=== PATIENT | female | born 1995 | race Caucasian/White ===

== ENCOUNTER 2023-02-11 11:10 | Emergency (ER) | payer MEDICAID, SELFPAY ==
[2023-02-11 11:11] VITALS: BP 122/80; PULSE 111; RESP 18; TEMP 36.2; O2SAT 98; BMI 20.7
--- NOTE | 2023-02-11 11:18 | EX.ED.GENINJ ---
HPI History of Present Illness Chief Complaint: Laceration [facility] Medical History Anxiety Depression Allergy/AdvReac Type Severity Reaction Status Date / Time No Known Allergies Allergy Verified 02/11/23 11:11 Social History Smoking Status: Current every day smoker tobacco type: cigarettes EXAM Physical Exam Const Vital Signs: 02/11/23 11:11 Temperature 97.1 F L Temperature Source Temporal Pulse Rate 111 H Respiratory Rate 18 Blood Pressure 122/80 H Blood Pressure Mean 94 Pulse Ox 98 Oxygen Delivery Method Room Air [facility] Narrative Medical decision making narrative: HISTORY OF PRESENT ILLNESS: 27-year-old female here with left thumb laceration. 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 Last tetanus 2 years ago REVIEW OF SYSTEMS: Pertinent positives: Laceration to left thumb Pertinent negatives: Numbness, tingling, loss sensation, loss of movement PHYSICAL EXAM: Nursing triage notes reviewed, Vital signs reviewed Constitutional: please see mdm Extremities: No edema, intact flexor digitorum profundus and superficialis tendons, intact extensor tendons. Neuro: Intact 5/5 strength with ok sign (median), intact finger abduction (ulnar) intact wrist extension (radial n). Intact sensation in the radial, ulnar, and median nerve distributions. Skin: Proximal 1 cm linear laceration noted to the dorsal surface of the left thumb, no underlying structures involved no foreign bodies noted MEDICAL DECISION MAKING: Chief Complaint: Thumb laceration External records reviewed: No recent advanced imaging of the involved extremity Factors affecting care: none Social determinants of health: none History obtained from others: none Consults: none [facility] Narrative: Patient was initially tachycardic otherwise hemodynamically stable, afebrile, nontoxic-appearing The patient suffered lacerations to the left dorsal thumb. On exam there was no evidence of foreign bodies. There was no evidence of neurovascular injury. Patient had a normal distal vascular exam, and had intact ROM and sensation. There was also no evidence of tendon injury, with normal distal full range of motion, flexion, extension, abduction, abduction. There is no evidence of local joint space involvement at this time. Wound care applied (irrigation and/or local cleansing solution). Laceration repair was then performed please see procedure note. The patient was given signs and symptoms warnings for infection, such as increasing pain, redness, swelling, associated heat, pus or fever. Patient was given instructions for timely follow-up for removal. Patient agreed with the plan of care Procedure: Laceration repair. The procedure was performed by myself. Indication: Wound repair Risks and benefits: risks, benefits and alternatives were discussed Consent: Consent was obtained. Wound Details: A proximately 1 cm linear superficial laceration noted to the left dorsal thumb. Anesthesia: Digital block performed with 1% lidocaine without epinephrine Wound prep: Patient was prepped and draped in the usual sterile fashion. Tetanus: Updated 2 years ago Irrigation Solution: Saline Wound Preparation: Cleaned with chlorhexidine The wound was explored to its base in a bloodless field. Procedure Description: 3 simple erupted, 5-0 Chromic Gut sutures were applied with good approximation Patient tolerated the procedure well with no immediate complications The patient and/or family, caregivers express understanding. The patient and/or family, caregivers agrees with the plan. Workmen's Compensation paperwork completed. Shared decision making: I will have a discussion with the patient and or visitors regarding risk/benefits of further testing or admission. They will be made aware of of the risk/benefits inherent in this decision they will be given the opportunity to voice understanding. Total critical care time today provided was at least 0 minutes. This excludes separately billable procedures. Critical care time (if documented) is secondary to the patient having high probability of clinically significant/life threatening deterioration in the patient's condition which required my urgent intervention. Impression: 1. Thumb laceration Dispo: disCharge Discharge Plan Triage Chief Complaint: Laceration ED Provider: Bijan Syed Dx/Rx/DC Orders Primary Care Provider: Care Physician,No Primary Referrals: Care Physician,No Primary [Primary Care Provider] -
[2023-02-11] MEDS: Lidocaine 1% (20 ml mdv) 20 ML Vial 5 ML INFILT (11:42)
--- NOTE | 2023-02-11 12:32 | ED.RN ---
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 REGISTRATION AND PATIENT'S KNOWLEDGE MANAGEMENT CONSULTANT MADE AWARE,DRUG SCREEN NOT REQUIRED ACCORDING TO KNOWLEDGE MANAGEMENT CONSULTANT. FRIO NOT COMPLETED.
== END 2023-02-11 12:33 | disposition home or self-care (01) ==
PROVIDERS: Emergency Provider Emergency Medicine; Visit Provider Emergency Medicine
DX: S61.012A Laceration without foreign body of left thumb without damage to nail, initial encounter (principal); F17.210 Nicotine dependence, cigarettes, uncomplicated; W26.8XXA Contact with other sharp object(s), not elsewhere classified, initial encounter; Y92.69 Other specified industrial and construction area as the place of occurrence of the external cause
CPT/HCPCS: 12001; 99282

== ENCOUNTER 2023-03-30 07:48 | Emergency (ER) | payer MEDICAID, SELFPAY ==
[2023-03-30 07:49] VITALS: BP 101/77; PULSE 78; RESP 14; TEMP 36.7; O2SAT 98; BMI 21.6
--- NOTE | 2023-03-30 08:07 | EDS_ITS ---
HPI History of Present Illness Chief Complaint: Wound Detail of Chief Complaint: Unable to remove piercing from right maxillary region Informant: patient Onset/Context/Timing Onset: Today Context: Sudden Onset Timing: Continuous Quality: Soft tissue swelling Location: Right maxillary region Current Severity: Moderate Maximum Severity: Moderate Worsened by: Attempt to remove janet stud Associated Symptoms Associated Symptoms: Pain, soft tissue swelling without erythema, warmth or induration. There i Narrative Narrative: Is a 27-year-old female who had her right and left cheek pierced 1 month ago. She attempted to remove the janet stud without success. She had significant swelling on the right side. She denies fever, chills night sweats. She denies redness, warmth or drainage. She attempted to remove and was unsuccessful. No history medic fever, heart murmur or mitral valve prolapse. Prior similar symptoms: No Recent Illness/Hospitalization: No PFSH PFS Medical History Anxiety Depression Home Medications cephalexin 500 mg capsule 500 mg PO Q6 #20 CAPSULES 03/30/23 [Rx Last Taken Unknown] Allergy/AdvReac Type Severity Reaction Status Date / Time No Known Allergies Allergy Verified 03/30/23 07:49 Social History (Updated 03/30/23 @ 08:[address] Ankit Esquivel MD) household members: none Smoking Status: Current every day smoker tobacco type: cigarettes alcohol intake: current ROS ROS ED Constitutional Constitutional ED: Denies chills, fever(s) or subjective Eyes Eyes: Denies blurry vision, change in vision or diplopia ENT ENT ED: Reports other Details: Facial swelling, maxillary region ; Denies ear pain, rhinorrhea or sore throat Cardiovascular Cardiovascular: Reports chest pain Respiratory/Chest Respiratory/Chest: Reports cough and dyspnea Gastrointestinal Gastrointestinal: Reports nausea and vomiting Integumentary Denies abscess, Abrasions or rash Neurologic Neurologic: Denies paresthesias Allergic/Immunologic Allergic/Immunologic ED: Denies mouth swelling, tongue swelling or urticaria EXAM Physical Exam Const Vital Signs: 03/30/23 07:49 Temperature 98.1 F Temperature Source Temporal Pulse Rate 78 Respiratory Rate 14 Blood Pressure 101/77 Blood Pressure Mean 85 Pulse Ox 98 Oxygen Delivery Method Room Air Positive well nourished and well developed General Appearance ED: well developed and NAD; Negative for cyanotic, diaphoretic or pallor HEENT Reports moist mucous membranes HEENT Narrative: Janet stud on the right is embedded into the skin and buccal surface. Unable to see the post where the clasp is. There is no erythema, warmth, induration or drainage. There is no preauricular lymphadenopathy. Eyes PERRL and EOMs intact bilaterally General Eye ED: Negative for pale conjunctiva or scleral icterus Neck no lymphadenopathy, supple and no JVD Resp normal respiratory effort and clear to auscultation bilaterally Cardio regular rate, regular rhythm, S1 normal heart sound, S2 normal heart sound and no murmurs Neuro oriented x3 and CN's II-XII intact bilaterally Sensorium / Orientation: alert Psych mental status grossly normal Skin no rashes or lesions noted and skin turgor normal General Skin Exam: elasticity normal; Negative for jaundice or pallor MDM MDM MDM Narrative Medical decision making narrative: A janet stud is embedded. Patient was informed that treatment will be to anesthetize the area. Make a small incision on the buccal surface to expose the post and class. Temporally be made to remove the clasp. Patient asked if a larger bore could be placed to prevent the area from closing since she would like to have the area stay open. Initially agreed. It will depend on if there is evidence of infection. This is concern for infection. Patient was placed on cephalexin. She received her first dose in the emergency department. Procedures Other Procedures Procedure(s): The area of the piercing was anesthetized by local infiltration. The end of the post on the buccal surface was seen. The post was grabbed using Suzie hemostats. The janet portion was secured with needle lewis. An attempt to unscrew the post the buccal portion of the post broke. The piercing was easily removed. There may have been slight drainage that was cloudy.. A larger post was placed to keep the area open and alleviating need for an incision. Patient was placed on cephalexin. Discharge Plan Triage Chief Complaint: Wound ED Provider: Ankit Esquivel Dx/Rx/DC Orders Clinical Impression: Old FB in soft tissue, Pierced face infection Prescriptions: New cephalexin [cephalexin] 500 mg capsule 500 mg PO Q6 Qty: 20 0RF Primary Care Provider: Care Physician,No Primary Referrals: Care Physician,No Primary [Primary Care Provider] - Doctor,Your [Non-Staff] - 2 Days for wound check Activity Restrictions/Additional Instructions: 1. Warm compresses to right cheek region 4-6 times a day 2. Take antibiotics until gone 3. See your primary care doctor for wound check in 2 days. The name of your doctor is on your insurance card issued to you by [facility]. Disposition Disposition: Home, Self Care
[2023-03-30] MEDS: Lidocaine 1% (20 ml mdv) 20 ML Vial INFILT (08:11)
[2023-03-30] MEDS: Cephalexin 250 MG Capsule 500 MG PO (08:48)
== END 2023-03-30 08:58 | disposition home or self-care (01) ==
PROVIDERS: Emergency Provider Emergency Medicine; Visit Provider Emergency Medicine
DX: M79.5 Residual foreign body in soft tissue (principal); F17.210 Nicotine dependence, cigarettes, uncomplicated; L08.89 Other specified local infections of the skin and subcutaneous tissue; Z18.89 Other specified retained foreign body fragments
CPT/HCPCS: 10120; 99282

== ENCOUNTER 2024-11-20 07:11 | Emergency (ER) | payer MEDICAID, SELFPAY ==
[2024-11-20 07:11] VITALS: BP 112/66; PULSE 75; RESP 14; TEMP 36.6; O2SAT 98
--- NOTE | 2024-11-20 07:40 | RAD_ITS ---
PROCEDURE: ANKLE MIN 3 VIEWS 11/20/2024 REASON FOR EXAM: INJURY Recent fall. TECHNIQUE: ANKLE MIN 3 VIEWS COMPARISON: None FINDINGS: Bones: No fracture. Joints: Normal alignment. Mortise appears intact. No effusion. Soft tissues: Soft tissues are unremarkable. Other: RAD/Ankle min 3 Views IMPRESSION: No acute abnormality is seen. Reading Location: [place] [id number]
--- NOTE | 2024-11-20 07:40 | RAD_ITS ---
PROCEDURE: FOOT MIN 3 VIEWS 11/20/2024 REASON FOR EXAM: INJURY Fall. TECHNIQUE: FOOT MIN 3 VIEWS COMPARISON: None FINDINGS: Bones: No visible fracture. No suspicious bone lesion. Joints: Normal alignment. Soft tissues: Soft tissues are unremarkable. Other: RAD/Foot min 3 Views IMPRESSION: NO ACUTE FRACTURE OR DISLOCATION. Reading Location: [place] [id number]
--- NOTE | 2024-11-20 07:40 | EDS_ITS ---
HPI History of Present Illness Chief Complaint: Lower Extremity Injury Informant: patient Narrative Narrative: Healthy 29-year-old female states she was dancing on a pole last night and fell off of it, injuring her left foot/ankle. She is not sure exactly the mechanism of injury, when I asked by showing by example on the uninjured leg what an ankle inversion feels like, she thinks that is what happened. She states she has been unable to put any weight on it since the injury. No numbness or other injury. [facility] Medical History Depression Anxiety Home Medications ?Medication ?Instructions ?Recorded ?Last Taken ?Type cephalexin 500 mg capsule 500 mg PO Q6 #20 CAPSULES Unknown Rx naproxen 500 mg tablet 500 mg PO BID PRN #14 tabs 0 11/20/24 Unknown Rx Allergy/AdvReac Type Severity Reaction Status Date / Time No Known Allergies Allergy Verified 03/30/23 07:49 Social History (Updated 03/30/23 @ 08:[address] Ankit Esquivel MD) household members: none Smoking Status: Current every day smoker tobacco type: cigarettes alcohol intake: current ROS ROS ED Constitutional Constitutional ED: Denies chills or fever(s) Musculoskeletal Musculoskeletal: Reports extremity pain; Denies neck pain Integumentary Denies Abrasions, rash or wounds Neurologic Neurologic: Denies paresthesias or weakness EXAM Physical Exam Const Vital Signs: 11/20/24 07:11 Temperature 98 F Temperature Source Temporal Pulse Rate 75 Respiratory Rate 14 Blood Pressure 112/66 Blood Pressure Mean 81 Pulse Ox 98 Oxygen Delivery Method Room Air Positive well nourished and well developed General Appearance ED: well developed and NAD Neck full ROM and supple Back/Spine normal ROM and normal to inspection Extremity normal to inspection Extremity Narrative: Left lower extremity: No deformities. Minor swelling and some tenderness in the dorsal proximal lateral midfoot, just distal to the lateral malleolus, which is nontender but there is tenderness in the distal fibula several centimeters proximal to the lateral malleolus. Nontender at the fibular head. Nontender medial malleolus. The base of the fifth metatarsal is tender without significant swelling and the rest of the foot is nontender. Limited range of motion at the ankle due to pain. Full range of motion at the knee and hip without difficulty. Other 3 extremities move fully without limitation or tenderness. Neuro oriented x3, no focal motor deficits and no sensory deficits noted Sensorium / Orientation: alert Psych mental status grossly normal and thought process normal Skin no wounds Rashes: no rashes MDM MDM MDM Narrative Medical decision making narrative: Three-view x-ray series of the left ankle and 3 views series of the left foot both negative for acute fracture or dislocation on my interpretation. Radiology in agreement. Patient will be treated as an ankle sprain, she was given an Aircast stirrup and some crutches as well as NSAID prescription as well as a dose here and follow-up advised. Radiography Diagnostic Testing: Clinical Impression(s) from Imaging Studies Ankle X-Ray 11/20/24 07:40 IMPRESSION: No acute abnormality is seen. Reading Location: [facility]-1 Foot X-Ray 11/20/24 07:40 IMPRESSION: NO ACUTE FRACTURE OR DISLOCATION. Reading Location: [facility]-- Discharge Plan Triage Chief Complaint: Lower Extremity Injury ED Provider: Rod May Dx/Rx/DC Orders Clinical Impression: Left ankle sprain Instructions: ED Ankle Sprain (Adult) Prescriptions: New naproxen 500 mg tablet 500 mg PO BID PRN Qty: 14 0RF No Action cephalexin [cephalexin] 500 mg capsule 500 mg PO Q6 Qty: 20 0RF Primary Care Provider: Care Physician,No Primary Referrals: Ruben Kulkarni MD [Med Staff - Active Staff] - 10-14 Days if not better Print Language: Khmer Disposition Disposition: Home, Self Care
--- OUTSIDE RECORDS SUMMARY | 2024-11-20 08:18 | XMS RPT_ITS | CCD ---
Author Organization [facility] InformFormerly [facility] Care Team Providers Care Validation Technician Name Role Phone CELIA YEPEZ Unavailable Unavailable BOTELLOMARKEL Unavailable Unavailable Unavailable Primary Care Provider Unavailabl e Unavailable Primary Care Provider Unavailabl e Unavailable Primary Care Provider Unavailabl e Casa DATA REDUCTION TECHNICIAN.Carlin VENCES Primary Care Provider Care Physician, No Primary Primary Care Unava ilable Bijan Syed Attending Unavailable Care Physician, No Primary Primary Care Unava ilable Ankit Esquivel Attending Unavailable Casa DATA REDUCTION TECHNICIAN.Carlin VENCES Primary Care Provider CARLIN BURR Primary Care Unavailable SYBIL ORTA Attending Unavailable SELF Referring Unavailable Medications Current Medications Medication Drug Class(es) Dates Sig (Normalized) Sig (Original) cephalexin 500 mg oral capsule (2 sources) Cephalosporin Antibacterial Start: 03-30-2023 take 500 mg by mouth every six hours Cephalexin Active 500 MG PO EVERY 6 HOURS March 30, 2023 12:00am Start: 08-25-2020 End: 09-01-2020 take 1 capsule by mouth twice daily cephALEXin (KEFLEX) 500 MG capsule Take 1 capsule by mouth 2 times daily for 7 days 14 capsule 0 08/25/2020 09/01/2020 Active doxylamine succinate 25 mg oral tablet (9 sources) Start: 10-28-2020 take 1 tablet by mouth once daily doxyLAMINE succinate (GNP SLEEP AID) 25 MG tablet Take 1 tablet by mouth nightly 30 tablet 3 10/28/2020 Active Start: 08-20-2020 take 0.5 tablet by m outh once daily doxyLAMINE succinate (GNP SLEEP AID) 25 MG tablet Indications: at early stage Take 0.5 tablets by mouth nightly 15 tablet 1 08/20/2020 Active fluticasone propionate 0.05 mg/actuat metered dose nasal spray (3 sources) Corticosteroid Start: 11-01-2020 take 1 spray(s) nasal route once daily fluticasone (FLONASE) 50 MCG/ACT nasal spray 1 spray by Each Nostril route daily 1 Bottle 0 11/01/2020 Active loratadine 10 mg oral tablet (3 sources) Start: 11-01-2020 End: 12-01-2020 take 1 tablet by mouth once daily loratadine (CLARITIN) 10 MG tablet Take 1 tablet by mouth daily 30 tablet 0 11/01/2020 12/01/2020 Active MV-Min-Fe Fum-FA-DHA ( 1 PO) (3 sources) MV-Min- Fe Fum-FA-DHA ( 1 PO) Take by mouth 0 Active Vit-Fe Fumarate-FA ( VITAMIN) 27-1 MG TABS tablet (6 sources) Start: 08-20-2020 take 1 tablet by mouth once daily Vit-Fe Fumarate-FA ( VITAMIN) 27-1 MG TABS tablet Indications: at early stage Take 1 tablet by mouth daily 30 tablet 11 08/20/2020 Active Start: 08-20-2020 End: 09-19-2020 take 1 tablet by mouth once daily Vit-Fe Fumarate-FA ( VITAMIN) 27-1 MG TABS tablet Indications: at early stage Take 1 tablet by mouth daily 30 tablet 11 08/20/2020 09/19/2020 Active pyridoxine hydrochloride 25 mg oral tablet (6 sources) Start: 10-10-2020 take 1 tablet by mouth three times daily vitamin B-6 (PYRIDOXINE) 25 MG tablet Indications: at early stage TAKE 1 TABLET BY MOUTH THREE TIMES A DAY 90 tablet 1 10/10/2020 Active Start: 08-20-2020 take 1 tablet by claudio three times daily vitamin B-6 (PYRIDOXINE) 25 MG tablet Indications: at early stage Take 1 tablet by mouth 3 times daily 90 tablet 1 08/20/2020 Active sertraline 100 mg oral tablet (20 sources) Serotonin Reuptake Inhibitor Start: 09-10-2023 End: 08-10-2024 take 1 tablet by mouth once sertraline (ZOLOFT) 100 mg tablet Indications: TOBI (generalized anxiety disorder) , Dysthymic disorder Take 1 tablet by mouth every afternoon. 90 tablet 3 08/10/2024 Active Start: 03-10-2023 End: 09-10-2023 take 1 tablet by mouth once daily, then take 2 tablets by mouth once daily sertraline (ZOLOFT) 50 mg tablet Indications: Moderate episode of recurrent major depressive disorder (HCC) , TOBI (generalized anxiety disorder) Start with 50 mg by mouth once a day for 7 days, then increase to 100 mg by mouth once a day 60 tablet 5 03/10/2023 09/10/2023 Discontinued Comment on above: Start with 50 mg by mouth once a day for 7 days, then increase to 100 mg by mouth once a day triamcinolone acetonide 1 mg/ml topical cream (15 sources) Corticosteroid Start: 03-10-2023 End: 08-10-2024 triamcinolone acetonide (KENALOG) 0.1 % cream Indications: Eczema, unspecified type Apply to affected area two times a day. 45 g 3 08/10/2024 Active Comment on above: Apply to affected ar ea two times a day. Completed/Discontinued Medications Medication Drug Class(es) Dates Sig (Normalized) Sig (Original) bacitracin zinc 0.5 unt/mg topical ointment (1 source) Start: 06-21-2020 End: 06-21-2020 bacitracin ointment Start: 06-21-2020 End: 06-21-2020 bacitracin ointment hydrOXYzine hydrochloride 25 mg oral tablet (12 sources) Antihistamine Start: 03-10-2023 End: 08-10-2024 take 1 tablet by mouth three times daily as needed for anxiety hydrOXYzine HCl (ATARAX) 25 mg tablet Indications: TOBI (generalized anxiety disorder) Take 1 tablet by mouth three times a day as needed for anxiety. 30 tablet 2 03/10/2023 08/10/2024 Discontinued (Other) Comment on above: Take 1 tablet by claudio three times a day as needed for anxiety. 10 ml lidocaine hydrochloride 10 mg/ml injection (1 source) Antiarrhythmic, Amide Local Anesthetic Start: 06-21-2020 End: 06-21-2020 lidocaine 1 % injection 5 mL methylPREDNISolone (1 source) Corticosteroid Start: 01-29-2017 methylPREDNISolone (MEDROL DOSE-PACK) 4 mg Dose-Pack Indications: Pharyngitis, unspecified etiology As Instructed per package 1 Package 0 01/29/2017 Active Comment on above: As Instructed per pa ckage Problems Active Problems Problem Classification Problem Date Documented Date Episodic/Chronic Anxiety disorders (13 sources) Generalized anxiety disorder; Translations: [Generalized anxiety disorder] Onset: 08-10-2024 09-09-2023 Chronic Cancer of cervix (2 sources) Cervical atypism; Translations: [Atypical squamous cells of undetermined significance on cytologic smear of cervix (ASC-US)] 11-07-2024 Episodic Immunizations and screening for infectious disease (2 sources) Patient encounter status; Translations: [Encounter for screening for infections with a predominantly sexual mode of transmission] Onset: 08-10-2024 08-10-2024 Episodic Mood disorders (14 sources) Recurrent major depressive episodes, moderate ; Translations: [Major depressive disorder, recurrent, moderate] Onset: 08-10-2024 09-09-2023 Chronic Nonmalignant breast conditions (3 sources) Lump in upper outer quadrant of right breast; Translations: [Unspecified lump in the right breast, upper outer quadrant] 08-10-2024 Episodic Open wounds of extremities (1 source) Laceration without foreign body of left thumb without damage to nail, initial encounter; Translations: [Laceration without foreign body of left thumb without damage to nail, initial encounter] Onset: 02-17-2023 Episodic Open wounds of head; neck; and trunk (1 source) Post-traumatic wound infection; Translations: [Puncture wound without foreign body of other part of head, initial encounter] 03-30-2023 Episodic Other aftercare (1 source) Encounter for removal of sutures; Translations: [Encounter for removal of sutures] Episodic Other connective tissue disease (1 source) Residual foreign body in soft tissue; Translations: [Residual foreign body in soft tissue] 03-30-2023 Episodic Other connective tissue disease (1 source) Residual foreign body in soft tissue; Translations: [Residual foreign body in soft tissue] Onset: 03-31-2023 Episodic Other screening for suspected conditions (not mental disorders or infectious disease) (2 sources) Cancer cervix screening status; Translations: [Encounter for screening for malignant neoplasm of cervix] Onset: 08-10-2024 08-10-2024 Episodic Other upper respiratory disease (1 source) Nasal congestion; Translations: [Nasal congestion] Episodic Other upper respiratory infections (1 source) Viral upper respiratory tract infection; Translations: [Acute upper respiratory infection, unspecified] Episodic Unclassified (1 source) Laceration of left forearm; Translations: [Laceration of left forearm, initial encounter] Urinary tract infections (1 source) Acute cystitis; Translations: [Acute cystitis with hematuria] Episodic Past or Other Problems Problem Classification Problem Date Documented Date Episodic/Chronic Allergic reactions (5 sources) Eczema; Translations: [Dermatitis, unspecified] Onset: 08-10-2024 08-10-2024 Episodic Contraceptive and procreative management (4 sources) Subcutaneous contraceptive implant present; Translations: [Presence of (intrauterine) contraceptive device] Onset: 08-10-2024 08-10-2024 Episodic Other and delivery including normal (6 sources) Early stage of ; Translations: [Encounter for supervision of normal , unspecified, unspecified trimester] Onset: 08-20-2020 Resolved: 09-20-2020 08-20-2020 Episodic NEGATED: Highlighted row has been ruled out!Unclassified (4 sources) No known active problems Results Test Name Value Interpretation Reference Range Facility C. trachomatis+N. gonorrhoea e DNA RUPERTO+probe Ql (Unsp spec)on 08-10-2024 C. trachomatis rRNA RUPERTO+probe Ql (Unsp spec) Not detected Normal Not detected [facility] Comment on above: Order Comment: Speci men Type: URINE SPECIMEN Ordering Facility: [facility] Address: [address] [place] [address] Performed By: #### 3 [id number] #### [facility] CLIA [id number] [address] [place] [address] OF [facility] N. gonorrhoeae rRNA RUPERTO+probe Ql (Unsp spec) Not detected Normal Not detected [facility] Comment on above: Order Comment: Speci men Type: URINE SPECIMEN Ordering Facility: [facility] Address: [address] [place] [address] Performed By: #### 3 [id number] #### [facility] CLIA [id number] [address] [place] [address] [place] CNOVon 08-10-2024 CNOV Office Visit ([facility]) ELO BOWDEN ([id number]) 1995 F Date Time Provider Department 08/10/24 8:00 AM SYBIL ORTA During your visit today, we recorded the following information about you: Temperature Pulse Respiration Blood pressure 98 degrees 76/minute 16/minute 110/60 Weight Height Last Period 60.3 kg 1.702 m 08/03/24 Sybil Orta DO 08/10/2024 12:40 PM Signed SUBJECTIVE: 29 year old female for annual routine pap and checkup. I have fully reviewed the past medical, surgical, social and family history and updated the Histories section of [facility]. She has a history of anxiety and dysthymia She has been taking zoloft 100 mg dailly for many years, just ran out a couple of days ago. She wishes to continue this medication , as it controls her mood. She has a history of eczema Uses kenalog cream as needed Patient's last menstrual period was 07/28/2024 (approximate). 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 (Patient not taking: Reported on 08/10/2024) 45 g 3 hydrOXYzine HCl (ATARAX) 25 mg tablet Take 1 tablet by mouth three times a day as needed for anxiety. (Patient not taking: Reported on 08/10/2024) 30 tablet 2 No current facility-administered medications for this visit. There is no problem list on file for this patient. Social History Tobacco Use Smoking status: Every Day Smokeless tobacco: Never Vaping Use Vaping status: Former Substance Use Topics Alcohol use: Yes Comment: social unless medication Drug use: No Family History Problem Relation Age of Onset No Known Problems Father No Known Problems Sister No Known Problems Sister No Known Problems Sister No Known Problems Brother No Known Problems Brother No Known Problems Brother Stroke Paternal Grandmother Stroke Paternal Grandfather Anxiety disorder Paternal Aunt Reviewed past medical history, family history and surgeries. All medications and supplements were reviewed with the patient. REVIEW OF SYSTEMS GENERAL: No weight loss, malaise or fevers HEENT: Negative for frequent or significant headaches, No changes in hearing or vision, no nose bleeds or other nasal problems NECK: Negative for lumps, goiter, pain and significant neck swelling RESPIRATORY: Negative for cough, hemoptysis, wheezing, COPD, dyspnea or shortness of breath CARDIOVASCULAR: Negative for chest pain, leg swelling, hypertension, CHF or palpitations GI: No nausea, vomiting, or diarrhea : No history of dysuria, frequency or incontinence TAX APPRAISER: slightly irregular periods since starting nexplanon, negative for abnormal vaginal discharge MUSCULOSKELETAL: Negative for joint pain or swelling, back pain or muscle pain SKIN: Negative for lesions, rash, and itching PSYCH: positive for dysthymia, anxiety HEMATOLOGY/LYMPHOLOGY: Negative for prolonged bleeding, bruising easily or swollen nodes ENDOCRINE: Negative for cold or heat intolerance, polyuria, polydipsia and goiter NEURO: No history of headaches, syncope, paralysis, seizures or tremors BREAST: right breast tenderness on upper out portion PHYSICAL EXAMINATION: BP 110/60 Pulse 76 Temp 36.7 ?C (98 ?F) Resp 16 Ht 170.2 cm (5' 7) Wt 60.3 kg (133 lb) LMP 08/03/2024 (Approximate) SpO2 98% BMI 20.83 kg/m? General appearance: Well appearing, alert, in no acute distress, well-hydrated, well nourished. Skin: Skin color, texture, turgor normal, no suspicious rashes or lesions Head: Normocephalic, no masses, lesions, tenderness or abnormalities Eyes: Anicteric sclera. Pupils are equally round and reactive to light. Extraocular movements are intact. Ears: External ears normal, canals clear Nose/Sinuses: Nares normal, septum midline, mucosa normal, no drainage or sinus tenderness Oropharynx: Lips, mucosa, and tongue normal, teeth and gums normal, oropharynx normal Neck: Supple, no adenopathy; thyroid symmetric, normal size, no bruits Back: Normal exam Lungs: Lungs clear to auscultation. No wheezing, rhonchi, rales. Heart: RRR without murmur, gallop, or rubs. No ectopy Abdomen: Normal abdominal exam, Abdomen soft, non-tender. Bowel sounds normal. No masses, organomegaly : normal external female genitalia, no lesions, vaginal mucosa moist, thick white discharge around cervix, cervix nonfriable, no CMT, no adnexal tenderness Extremities: No deformities, edema, skin discoloration, clubbing or cyanosis. Good capillary refill. Musculoskeletal: N (more content not included)... Normal [facility] HIGH RISK HUMAN PAPILLOMA PAT (HPV), PCR FOR DETECTION AND GENOTYPINGon 08-10-2024 HPV 16 Ag Ql (Unsp spec) Not detected Normal Not detected [facility] Comment on above: Order Comment: Speci men Type: FLUID SPECIMEN Ordering Facility: [facility] Address: [address] [place] [address] Performed By: #### H PVHRT #### [facility] CLIA [id number] [address] [place] [address] [place] HPV 18 Ag Ql (Unsp spec) Detected Abnormal Not detected [facility] Comment on above: Order Comment: Speci men Type: FLUID SPECIMEN Ordering Facility: [facility] Address: [address] [place] [address] Performed By: #### H PVHRT #### [facility] CLIA [id number] [address] [place] [address] [place] HPV 31+33+35+39+45+51+52+56 +58+59+66+68 DNA RUPERTO+probe Ql (Cvx) Not detected Normal Not detected [facility] Comment on above: Order Comment: Speci men Type: FLUID SPECIMEN Ordering Facility: [facility] Address: [address] [place] [address] Result Comment: High Risk HPV Other Type includes HPV types 31, 33, 35, 39, 45, 51, 52, 56, 58, 59, 66 and 68. Performed By: #### H PVHRT #### [facility] CLIA [id number] [address] [place] [address] OF [place] PAP TESTon 08-10-2024 ADEQUACY Normal [facility] Comment on above: Order Comment: Speci men Type: FLUID SPECIMEN Ordering Facility: [facility] Address: [address] [place] [address] Result Comment: Sati sfactory for interpretation. Transformation zone present Performed By: #### L [id number] #### [facility] CLIA [id number] [address] [place] [address] CASE REPORT Normal [facility] Comment on above: Order Comment: Speci men Type: FLUID SPECIMEN Ordering Facility: [facility] Address: [address] [place] [address] Result Comment: Gyne cologic Cytology Report Case: [id number] Authorizing Provider: Sybil Orta DO Collected: 08/10/2024 08:59 AM Ordering Location: [facility] Received: 08/10/2024 12:08 PM First Screen: Maya Parry CT, ASCP Pathologist: Isatu Elkins MD Specimen: Pap Test, ThinPrep, Cervix Performed By: #### L [id number] #### [facility] CLIA [id number] [address] CLINICAL HISTORY, CYTOLOGY, TAX APPRAISER Routine Exam Normal [facility] Comment on above: Order Comment: Speci men Type: FLUID SPECIMEN Ordering Facility: [facility] Address: [address] [place] [address] Performed By: #### L [id number] #### [facility] CLIA [id number] [address] OF [facility] FINAL PERFORMING LAB Normal [facility] Comment on above: Order Comment: Speci men Type: FLUID SPECIMEN Ordering Facility: [facility] Address: [address] [place] [address] Result Comment: Tech nical component, computer hardware technician screening performed at [facility], [address] [place] [address] CLIA# [id number] Diagnostic interpretation performed at [facility], [address] [place] [address] CLIA# [id number] Adz Worker: Jayjay Fan M.D. Performed By: #### L [id number] #### [facility] CLIA [id number] [address] [place] [address] [place] INTERPRETATION, CYTOLOGY, TAX APPRAISER Abnormal [facility] Comment on above: Order Comment: Speci men Type: FLUID SPECIMEN Ordering Facility: [facility] Address: [address] [place] [address] Result Comment: Atyp ical squamous cells of undetermined significance (ASC-US). at 1528 EDT Performed By: #### L [id number] #### [facility] CLIA [id number] [address] [place] [address] [place] LMP 08/03/2024 Normal [facility] Comment on above: Order Comment: Speci men Type: FLUID SPECIMEN Ordering Facility: [facility] Address: [address] [place] [address] Performed By: #### L [id number] #### [facility] CLIA [id number] [address] [place] [address] [place] PAP DISCLAIMER COMMENT The Pap Smear is a screening test for cervical cancer. False negative results occur with all screening tests, emphasizing the need for rescreening at recommended intervals, and clinical correlation. Normal [facility] Comment on above: Order Comment: Speci men Type: FLUID SPECIMEN Ordering Facility: [facility] Address: [address] [place] [address] Performed By: #### L [id number] #### [facility] CLIA [id number] [address] [place] [address] STATES [facility] PAP GENERAL CATEGORIZATION Epithelial Cell Abnormality Normal [facility] Comment on above: Order Comment: Speci men Type: FLUID SPECIMEN Ordering Facility: [facility] Address: [address] [place] [address] [place] [address] Performed By: #### L [id number] #### [facility] CLIA [id number] [address] PAP FACILITIES AND GROUNDS DIRECTOR COMMENT This specimen has be en analyzed by the ThinPrep Imaging System, an automated imaging and review system, which assists the laboratory in evaluating cells on ThinPrep Pap tests. Following automated imaging, selected bethea from every slide are reviewed by a computer hardware technician. Normal [facility] Comment on above: Order Comment: Speci men Type: FLUID SPECIMEN Ordering Facility: [facility] Address: [address] [place] [id number] Performed By: #### L [id number] #### [facility] CLIA [id number] [address] CNPTiffany 08-08-2024 TRACEY Telephone (AGFAMPLE) ELO BOWDEN ([id number]) 1995 F Date Time Provider Department 08/08/24 CARLIN BURR During your visit today, we recorded the following information about you: Barbara Velasquez MA 08/08/2024 11:31 AM Signed Please help assist scheduling appointment for patient for refill on medication . Thank you. LEANN Davis Katherine 08/08/2024 12:04 PM Signed Called patient to make an appointment. The phone # listed is a [place]ian speaking man and said it was not Elo's phone number. She has noone listed on her HIPAA so I did not call the other phone number in her chart. Brynn Palmer Allergies As of Date: 08/08/2024 (No Known Allergies) Date Reviewed: 03/10/2023 Reviewed by: Carlin Burr, DATA REDUCTION TECHNICIAN.MAGNETIC RESONANCE IMAGING COORDINATOR - Fully Assessed Reason for Visit: Appointment [[id number]] Prescriptions as of 08/08/2024 - sertraline (ZOLOFT) 100 mg tablet TAKE 1 TABLET BY MOUTH EVERY DAY - triamcinolone acetonide (KENALOG) 0.1 % cream Apply to affected area two times a day. - hydrOXYzine HCl (ATARAX) 25 mg tablet Take 1 tablet by mouth three times a day as needed for anxiety. Problem List As Of Date: 08/08/2024 (None) Encounter Status:Closed by BARBARA VELASQUEZ on 08/08/24 Normal [facility] Emergency Department Summary on 03-30-2023 Emergency Department Summary [facility] Medical Records Department [address] [facility] [place] [address] Emergency Department Summary 03/30/23 MR#: [id number] Acct: [id number] Name: ELO BOWDEN Rep #: [id number] : 1995 From: Ankit Esquivel MD PCP: Care Physician,No Primary Status:REG ER Location: ED HPI History of Present Illness Chief Complaint: Wound Detail of Chief Complaint: Unable to remove piercing from right maxillary region Informant: patient Onset/Context/Timing Onset: Today Context: Sudden Onset Timing: Continuous Quality: Soft tissue swelling Location: Right maxillary region Current Severity: Moderate Maximum Severity: Moderate Worsened by: Attempt to remove janet stud Associated Symptoms Associated Symptoms: Pain, soft tissue swelling without erythema, warmth or induration. There i Narrative Narrative: Is a 27-year-old female who had her right and left cheek pierced 1 month ago. She attempted to remove the janet stud without success. She had significant swelling on the right side. She denies fever, chills night sweats. She denies redness, warmth or drainage. She attempted to remove and was unsuccessful. No history medic fever, heart murmur or mitral valve prolapse. Prior similar symptoms: No Recent Illness/Hospitalization : No PFSH PFSH Medical History Anxiety Depression Home Medications cephalexin 500 mg capsule 500 mg PO Q6 #20 CAPSULES 03/30/23 [Rx Last Taken Unknown] Allergy/AdvReac Type Severity Reaction Status Date / Time No Known Allergies Allergy Verified 03/30/23 07:49 Social History (Updated 03/30/23 @ 08:[address] Ankit Esquivel MD) household members: none Smoking Status: Current every day smoker tobacco type: cigarettes alcohol intake: current ROS ROS ED Constitutional Constitutional ED: Denies chills, fever(s) or subjective Eyes Eyes: Denies blurry vision, change in vision or diplopia ENT ENT ED: Reports other Details: Facial swelling, maxillary region ; Denies ear pain, rhinorrhea or sore throat Cardiovascular Cardiovascular: Reports chest pain Respiratory/Chest Respiratory/Chest: Reports cough and dyspnea Gastrointestinal Gastrointestinal: Reports nausea and vomiting Integumentary Denies abscess, Abrasions or rash Neurologic Neurologic: Denies paresthesias Allergic/Immunologic Allergic/Immunologic ED: Denies mouth swelling, tongue swelling or urticaria EXAM Physical Exam Const Vital Signs: 03/30/23 07:49 Temperature 98.1 F Temperature Source Temporal Pulse Rate 78 Respiratory Rate 14 Blood Pressure 101/77 Blood Pressure Mean 85 Pulse Ox 98 Oxygen Delivery Method Room Air Positive well nourished and well developed General Appearance ED: well developed and NAD; Negative for cyanotic, diaphoretic or pallor HEENT Reports moist mucous membranes HEENT Narrative: Janet stud on the right is embedded into the skin and buccal surface. Unable to see the post where the clasp is. There is no erythema, warmth, induration or drainage. There is no preauricular lymphadenopathy. Eyes PERRL and EOMs intact bilaterally General Eye ED: Negative for pale conjunctiva or scleral icterus Neck no lymphadenopathy, supple and no JVD Resp normal respiratory effort and clear to auscultation bilaterally Cardio regular rate, regular rhythm, S1 normal heart sound, S2 normal heart sound and no murmurs Neuro oriented x3 and CN's II-XII intact bilaterally Sensorium / Orientation: alert Psych mental status grossly normal Skin no rashes or lesions noted and skin turgor normal General Skin Exam: elasticity normal; Negative for jaundice or pallor MDM MDM MDM Narrative Medical decision making narrative: A janet stud is embedded. Patient was informed that treatment will be to anesthetize the area. Make a small incision on the buccal surface to expose the post and class. Temporally be made to remove the clasp. Patient asked if a larger bore could be placed to prevent the area from closing since she would like to have the area stay open. Initially agreed. It will depend on if there is evidence of infection. This is concern for infection. Patient was placed on cephalexin. She received her first dose in the emergency department. Procedures Other Procedures Procedure(s): The area of the piercing was anesthetized by local infiltration. The end of the post on the buccal surface was seen. The post was grabbed using Suzie hemostats. The janet portion was secured with needle lewis. An attempt to unscrew the post the buccal portion of the post broke. The piercing was easily removed. There may have been slight drainage that was cloudy.. A larger post was placed to keep the area open and alleviating need for an incision. Patient w (more content not included)... Normal [facility] Emergency Department Summary on 02-11-2023 Emergency Department Summary [facility] Medical Records Department [address] [place] [address] Emergency Department Summary 02/11/23 MR#: [id number] Acct: [id number] Name: ELO BOWDEN Rep #: [id number] : 1995 27 From: Bijan Syed DO PCP: Care Physician,No Primary Status:DEP ER Location: ED HPI History of Present Illness Chief Complaint: Laceration [facility] Medical History Anxiety Depression Allergy/AdvReac Type Severity Reaction Status Date / Time No Known Allergies Allergy Verified 02/11/23 11:11 Social History Smoking Status: Current every day smoker tobacco type: cigarettes EXAM Physical Exam Const Vital Signs: 02/11/23 11:11 Temperature 97.1 F L Temperature Source Temporal Pulse Rate 111 H Respiratory Rate 18 Blood Pressure 122/80 H Blood Pressure Mean 94 Pulse Ox 98 Oxygen Delivery Method Room Air MDM MDM MDM Narrative Medical decision making narrative: HISTORY OF PRESENT ILLNESS: 27-year-old female here with left thumb laceration. 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 Last tetanus 2 years ago REVIEW OF SYSTEMS: Pertinent positives: Laceration to left thumb Pertinent negatives: Numbness, tingling, loss sensation, loss of movement PHYSICAL EXAM: Nursing triage notes reviewed, Vital signs reviewed Constitutional: please see mdm Extremities: No edema, intact flexor digitorum profundus and superficialis tendons, intact extensor tendons. Neuro: Intact 5/5 strength with ok sign (median), intact finger abduction (ulnar) intact wrist extension (radial n). Intact sensation in the radial, ulnar, and median nerve distributions. Skin: Proximal 1 cm linear laceration noted to the dorsal surface of the left thumb, no underlying structures involved no foreign bodies noted MEDICAL DECISION MAKING: Chief Complaint: Thumb laceration External records reviewed: No recent advanced imaging of the involved extremity Factors affecting care: none Social determinants of health: none History obtained from others: none Consults: none MDM Narrative: Patient was initially tachycardic otherwise hemodynamically stable, afebrile, nontoxic-appearing The patient suffered lacerations to the left dorsal thumb. On exam there was no evidence of foreign bodies. There was no evidence of neurovascular injury. Patient had a normal distal vascular exam, and had intact ROM and sensation. There was also no evidence of tendon injury, with normal distal full range of motion, flexion, extension, abduction, abduction. There is no evidence of local joint space involvement at this time. Wound care applied (irrigation and/or local cleansing solution). Laceration repair was then performed please see procedure note. The patient was given signs and symptoms warnings for infection, such as increasing pain, redness, swelling, associated heat, pus or fever. Patient was given instructions for timely follow-up for removal. Patient agreed with the plan of care Procedure: Laceration repair. The procedure was performed by myself. Indication: Wound repair Risks and benefits: risks, benefits and alternatives were discussed Consent: Consent was obtained. Wound Details: A proximately 1 cm linear superficial laceration noted to the left dorsal thumb. Anesthesia: Digital block performed with 1% lidocaine without epinephrine Wound prep: Patient was prepped and draped in the usual sterile fashion. Tetanus: Updated 2 years ago Irrigation Solution: Saline Wound Preparation: Cleaned with chlorhexidine The wound was explored to its base in a bloodless field. Procedure Description: 3 simple erupted, 5-0 Chromic Gut sutures were applied with good approximation Patient tolerated the procedure well with no immediate complications The patient and/or family, caregivers express understanding. The patient and/or family, caregivers agrees with the plan. Workmen's Compensation paperwork completed. Shared decision making: I will have a discussion with the patient and or visitors regarding risk/benefits of further testing or admission. They will be made aware of of the risk/benefits inherent in this decision they will be given the opportunity to voice understanding. Total critical care time today provided was at least 0 minutes. This excludes separately billable procedures. Critical care time (if documented) is secondary to the patient having high probability of clinically significant/life threatening deterioration in the patient's condition which required my urgent intervention. Impression: 1. Thumb laceration Dispo: disCharge Discharge Plan Triage Chief Complaint: Laceration ED Provider: Bijan Syed (more content not included)... Normal [facility] Medication Assisted Treatmen t Panelon 04-09-2021 Amphetamines Ql (U) Negative [facility] Comment on above: Performed By: #### M AT #### [address] [place], [place] Barbiturates Negative [facility] Comment on above: Performed By: #### M AT #### [address] [place], [place] Benzodiazepines Ql (U) Negative Health system Comment on above: Performed By: #### M AT #### [address] [place], [place] Buprenorphine Screen Negative [facility] Comment on above: Performed By: #### M AT #### [address] [place], [place] Cocaine Ql (U) Negative [facility] Comment on above: Performed By: #### M AT #### [address] [place], [place] Ethanol [Mass/Vol] Negative [facility] Comment on above: Performed By: #### M AT #### [facility] [address] [place], [place] Fentanyl Negative [facility] Comment on above: Performed By: #### M AT #### [facility] [address] [facility], [place] Methadone Ql (U) Negative Normal [facility] Comment on above: Performed By: #### M AT #### [address] [place], [place] Opiates Ql (U) Negative Normal [facility] Comment on above: Performed By: #### M AT #### [facility] [address] [facility], [place] Oxycodone/Oxymorphone Negative Normal [facility] Comment on above: Performed By: #### M AT #### [facility] [address] [facility] [place] PCP Negative Normal [facility] Comment on above: Performed By: #### M AT #### [facility] [address] [facility] [place] THC Negative Normal [facility] Comment on above: Performed By: #### M AT #### [facility] [address] [place], [place] MAT Panel Test Comment See Below Normal [facility] Comment on above: Result Comment: The expected value for the drugs listed above is Negative. The following drugs or drug groups have been screened for by Immunoassay at the following thresholds: Amphetamine class(1000ng/mL), Barbituates(200ng/mL), Benzodiazepines(200ng/mL), Cocaine(300ng/mL), Ethanol (50 ng/mL), Methadone(300ng/mL), Opiates(300ng/mL), Oxycodone(100ng/mL), PCP(25ng/mL), Buprenorphine(5ng/mL), THC(50ng/mL), Fentanyl(1ng/mL). Positive results are NOT confirmed by a more specific alternative method unless requested. If confirmation is needed, request confirmation under separate order. NOTE: These results are for medical treatment only. Analysis performed using non-forensic procedures. Performed By: #### M AT #### [facility] [address] [facility], [place] Hemogramon 04-08-2021 Erythrocyte distribution width (RBC) [Ratio] 13.2 % Normal 11.5-14.5 [facility] Comment on above: Performed By: #### H EMOG #### [facility] [address] [facility] [place] Hematocrit (Bld) [Volume fraction] 32.9 % Low 35.0-47.0 [facility] Comment on above: Performed By: #### H EMOG #### [facility] [address] [place], [place] Hemoglobin (Bld) [Mass/Vol] 11.2 g/dL Low 11.7-16.0 [facility] Comment on above: Performed By: #### H EMOG #### [facility] [address] [place], [place] MCH (RBC) [Entitic mass] 29.0 pg Normal 26.0-34.0 [facility] Comment on above: Performed By: #### H EMOG #### [address] [place], [place] MCHC 34.0 % Normal 32.0-36.0 [facility] Comment on above: Performed By: #### H EMOG #### [address] [place], [place] MCV (RBC) [Entitic vol] 85.1 fL Normal 79.0-98.[address] [facility] Comment on above: Performed By: #### H EMOG #### [address] [place], [place] Platelet mean volume (Bld) [Entitic vol] 10.2 fL Normal 7.4-10.4 [facility] Comment on above: Performed By: #### H EMOG #### [address] [place], [place] Platelets (Bld) [#/Vol] 212 10*3/uL Normal 140-440 [facility] Comment on above: Performed By: #### H EMOG #### [address] [place], [place] RBC (Bld) [#/Vol] 3.86 10*6/uL Normal 3.80-5.20 [facility] Comment on above: Performed By: #### H EMOG #### [address] [place], [place] WBC (Bld) [#/Vol] 9.3 10*3/uL Normal 3.6-10.7 [facility] Comment on above: Performed By: #### H EMOG #### [address] [address] [place] [address] TS GELon 04-08-2021 TS GEL ABO Group: A Rh, Gel: POS Antibody Screen Gel: NEG Normal [facility] [employer] [facility] Comment on above: Performed By: #### T SGL #### [facility] Upon 11-20-2020 [facility] US Follow Up Patient Name: ELO BOWDEN Maternal Medicine ACCESSION EXAM DATE/TIME PROCEDURE ORDERING PROVIDER [id number] 11/20/2020 10:13 EDT [facility] US Follow RU WALL KIMBERLY E. Up Reason For Exam ([facility] US Follow Up) sub op anatomy Report OBSTETRICS REPORT (Signed Final 11/20/2020 01:28 pm) Patient Info ID #: [id number] : [birth year] (25 yrs) Name: ELO BOWDEN Visit Date: 11/20/2020 10:14 am Performed By Attending: Isaura Desir MD Location: [facility] Performed By: Janiya Kern RDWV Visit Type: Outpatient Referred By: SYBIL WALL CNP Service(s) [place] [id number] Indications Encounter for follow up ultrasound of Z36.2 anatomy Vital Signs Weight (lb): 138 Height: 5'4 BMI: 23.69 Evaluation Num Of Fetuses: 1 Heart Rate(bpm): 155 Cardiac Activity: Regular rhythm Lie: Longitudinal Presentation: Cephalic Placenta: Anterior Amniotic Fluid LUIS FV: Within normal limits Largest Pocket(cm) 4.6 RUQ(cm) Maternal Medicine Report 4.6 Gestational Age LMP: 21w 6d Date: 06/20/20 RAE: 03/27/21 Best: 20w 1d Det. By: U/S C R L (08/23/20) RAE: 04/08/21 Targeted Anatomy Spine Cervical: Normal appearance Sacral: Normal appearance Thoracic: Normal appearance Shape/Curvature: Normal appearance Lumbar: Normal appearance Thorax SVC: Normal appearance IVC: Normal Appearance Impression 1. Hines live intrautine at 20w 1d. 2. Anatomy not visualized on prior exam appears normal. This completes the anatomic suvey. 3. Anterior placenta. Additional follow-up as clinically indicated. Ultrasound is not diagnostic of chromosomal aneuploidy and does not detect all subtle defects. Normal ultrasound findings do not guarantee normal outcomes. Isaura Desir MD Electronically Signed Final Report 11/20/2020 01:28 pm Final Dictated: 11/20/2020 10:14 am Dictating Physician: ISAURA HERNANDEZ Signed Date and Time: 11/20/2020 1:29 pm Signed by: ISAURA HERNANDEZ Ultrasound ACCESSION EXAM DATE/TIME PROCEDURE ORDERING PROVIDER [id number] 11/20/2020 10:13 EDT [facility] US Follow RU WALL KIMBERLY E. Up Reason For Exam ([facility] US Follow Up) sub op anatomy Report OBSTETRICS REPORT (Signed Final 11/20/2020 01:28 pm) Patient Info ID #: [id number] : [birth year] (25 yrs) Name: ELO BOWDEN Visit Date: 11/20/2020 10:14 am Performed By Attending: Isaura Desir MD Location: [facility] Ultrasound Report Center Performed By: Janiya Kern [facility] Visit Type: Outpatient Referred By: SYBIL WALL CNP Service(s) [place] [id number] Indications Encounter for follow up ultrasound of Z36.2 anatomy Vital Signs Weight (lb): 138 Height: 5'4 BMI: 23.69 Evaluation Num Of Fetuses: 1 Heart Rate(bpm): 155 Cardiac Activity: Regular rhythm Lie: Longitudinal Presentation: Cephalic Placenta: Anterior Amniotic Fluid LUIS FV: Within normal limits Largest Pocket(cm) 4.6 RUQ(cm) 4.6 Gestational Age LMP: 21w 6d Date: 06/20/20 RAE: 03/27/21 Best: 20w 1d Det. By: U/S C R Chevy (08/23/20) RAE: 04/08/21 Targeted Anatomy Spine Cervical: Normal appearance Sacral: Normal appearance Thoracic: Normal appearance Shape/Curvature: Normal appearance Lumbar: Normal appearance Thorax SVC: Normal appearance IVC: Normal Appearance Impression 1. Hines live intrautine at 20w 1d. 2. Anatomy not visualized on prior exam appears normal. This completes the anatomic suvey. 3. Anterior placenta. Additional follow-up as clinically indicated. Ultrasound is not diagnostic of chromosomal aneuploidy and does not detect all subtle defects. Normal ultrasound findings do not guarantee normal outcomes. Ultrasound Report Isaura Desir MD Electronically Signed Final Report 11/20/2020 01:28 pm Final Dictated: 11/20/2020 10:14 am Dictating Physician: ISAURA HERNANDEZ Signed Date and Time: 11/20/2020 1:29 pm Signed by: ISAURA HERNANDEZ [facility] RADIOLOGY REPORTOrdered By: Scanning on 11-20-2020 [facility] Work Phone: US OB FOLLOW UP TRANSABDOMIN AL APPROACHOrdered By: Sybil Wall on 11-20-2020 Patient Name: ELO LUU MS Maternal Medicine ACCESSION EXAM DATE/TIME PROCEDURE ORDERING PROVIDER [id number] 11/20/2020 10:13 EDT [facility] US Follow RU WALL KIMBERLY E. Up Reason For Exam ([facility] US Follow Up) sub op anatomy Report OBSTETRICS REPORT (Signed Final 11/20/2020 01:28 pm) Patient Info ID #: [id number] : [birth year] (25 yrs) Name: ELO BOWDEN Visit Date: 11/20/2020 10:14 am Performed By Attending: Isaura Desir MD Location: [facility] Performed By: Janiya Kern [facility] Visit Type: Outpatient Referred By: SYBIL WALL CNP Service(s) [place] [id number] Indications Encounter for follow up ultrasound of Z36.2 anatomy Vital Signs Weight (lb): 138 Height: 5'4 BMI: 23.69 Evaluation Num Of Fetuses: 1 Heart Rate(bpm): 155 Cardiac Activity: Regular rhythm Lie: Longitudinal Presentation: Cephalic Placenta: Anterior Amniotic Fluid LUIS FV: Within normal limits Largest Pocket(cm) 4.6 RUQ(cm) Maternal Medicine Report 4.6 Gestational Age LMP: 21w 6d Date: 06/20/20 RAE: 03/27/21 Best: 20w 1d Det. By: U/S Alison Reece (08/23/20) RAE: 04/08/21 Targeted Anatomy Spine Cervical: Normal appearance Sacral: Normal appearance Thoracic: Normal appearance Shape/Curvature: Normal appearance Lumbar: Normal appearance Thorax SVC: Normal appearance IVC: Normal Appearance Impression 1. Hines live intrautine at 20w 1d. 2. Anatomy not visualized on prior exam appears normal. This completes the anatomic suvey. 3. Anterior placenta. Additional follow-up as clinically indicated. Ultrasound is not diagnostic of chromosomal aneuploidy and does not detect all subtle defects. Normal ultrasound findings do not guarantee normal outcomes. Isaura Desir MD Electronically Signed Final Report 11/20/2020 01:28 pm --- Final --- Dictated: 11/20/2020 10:14 am Dictating Physician: ISAURA HERNANDEZ Signed Date and Time: 11/20/2020 1:29 pm Signed by: ISAURA HERNANDEZ Ultrasound ACCESSION EXAM DATE/TIME PROCEDURE ORDERING PROVIDER [id number] 11/20/2020 10:13 EDT [facility] US Follow MAE, RU, SYBIL Cortés Reason For Exam ([facility] US Follow Up) sub op anatomy Report OBSTETRICS REPORT (Signed Final 11/20/2020 01:28 pm) Patient Info ID #: [id number] : [birth year] (25 yrs) Name: ELO BOWDEN Visit Date: 11/20/2020 10:14 am Performed By Attending: Isaura Desir MD Location: [facility] Ultrasound Report Center Performed By: Janiya Kern [facility] Visit Type: Outpatient Referred By: SYBIL WALL CNP Service(s) [place] [id number] Indications Encounter for follow up ultrasound of Z36.2 anatomy Vital Signs Weight (lb): 138 Height: 5'4 BMI: 23.69 Evaluation Num Of Fetuses: 1 Heart Rate(bpm): 155 Cardiac Activity: Regular rhythm Lie: Longitudinal Presentation: Cephalic Placenta: Anterior Amniotic Fluid LUIS FV: Within normal limits Largest Pocket(cm) 4.6 RUQ(cm) 4.6 Gestational Age LMP: 21w 6d Date: 06/20/20 RAE: 03/27/21 Best: 20w 1d Det. By: U/S C R L (08/23/20) RAE: 04/08/21 Targeted Anatomy Spine Cervical: Normal appearance Sacral: Normal appearance Thoracic: Normal appearance Shape/Curvature: Normal appearance Lumbar: Normal appearance Thorax SVC: Normal appearance IVC: Normal Appearance Impression 1. Hines live intrautine at 20w 1d. 2. Anatomy not visualized on prior exam appears normal. This completes the anatomic suvey. 3. Anterior placenta. Additional follow-up as clinically indicated. Ultrasound is not diagnostic of chromosomal aneuploidy (more content not included)... [facility] Work Phone: [facility] Incoming Radiology Results From [facility] - 11/20/2020 1:29 PM EDT Patient Name: ELO BOWDEN Maternal Medicine ACCESSION EXAM DATE/TIME PROCEDURE ORDERING PROVIDER [id number] 11/20/2020 10:13 EDT [facility] US Follow RU WALL KIMBERLY E. Up Reason For Exam ([facility] US Follow Up) sub op anatomy Report OBSTETRICS REPORT (Signed Final 11/20/2020 01:28 pm) Patient Info ID #: [id number] : [birth year] (25 yrs) Name: ELO BOWDEN Visit Date: 11/20/2020 10:14 am Performed By Attending: Isaura Desir MD Location: [facility] Performed By: Janiya Kern RDWV Visit Type: Outpatient Referred By: SYBIL WALL CNP Service(s) [place] [id number] Indications Encounter for follow up ultrasound of Z36.2 anatomy Vital Signs Weight (lb): 138 Height: 5'4 BMI: 23.69 Evaluation Num Of Fetuses: 1 Heart Rate(bpm): 155 Cardiac Activity: Regular rhythm Lie: Longitudinal Presentation: Cephalic Placenta: Anterior Amniotic Fluid LUIS FV: Within normal limits Largest Pocket(cm) 4.6 RUQ(cm) Maternal Medicine Report 4.6 Gestational Age LMP: 21w 6d Date: 06/20/20 RAE: 03/27/21 Best: 20w 1d Det. By: U/Jayy Reece (08/23/20) RAE: 04/08/21 Targeted Anatomy Spine Cervical: Normal appearance Sacral: Normal appearance Thoracic: Normal appearance Shape/Curvature: Normal appearance Lumbar: Normal appearance Thorax SVC: Normal appearance IVC: Normal Appearance Impression 1. Hines live intrautine at 20w 1d. 2. Anatomy not visualized on prior exam appears normal. This completes the anatomic suvey. 3. Anterior placenta. Additional follow-up as clinically indicated. Ultrasound is not diagnostic of chromosomal aneuploidy and does not detect all subtle defects. Normal ultrasound findings do not guarantee normal outcomes. Isaura Desir MD Electronically Signed Final Report 11/20/2020 01:28 pm --- Final --- Dictated: 11/20/2020 10:14 am Dictating Physician: ISAURA HERNANDEZ Signed Date and Time: 11/20/2020 1:29 pm Signed by: ISAURA HERNANDEZ Ultrasound ACCESSION EXAM DATE/TIME PROCEDURE ORDERING PROVIDER [id number] 11/20/2020 10:13 EDT [facility] US Follow RU WALL KIMBERLY E. Up Reason For Exam ([facility] US Follow Up) sub op anatomy Report OBSTETRICS REPORT (Signed Final 11/20/2020 01:28 pm) Patient Info ID #: [id number] : [birth year] (25 yrs) Name: ELO BOWDEN Visit Date: 11/20/2020 10:14 am Performed By Attending: Isaura Desir MD Location: [facility] Ultrasound Report Center Performed By: Janiya Kern [facility] Visit Type: Outpatient Referred By: SYBIL WALL CNP Service(s) [place] [id number] Indications Encounter for follow up ultrasound of Z36.2 anatomy Vital Signs Weight (lb): 138 Height: 5'4 BMI: 23.69 Evaluation Num Of Fetuses: 1 Heart Rate(bpm): 155 Cardiac Activity: Regular rhythm Lie: Longitudinal Presentation: Cephalic Placenta: Anterior Amniotic Fluid LUIS FV: Within normal limits Largest Pocket(cm) 4.6 RUQ(cm) 4.6 Gestational Age LMP: 21w 6d Date: 06/20/20 RAE: 03/27/21 Best: 20w 1d Det. By: U/S Alison Reece (08/23/20) RAE: 04/08/21 Targeted Anatomy Spine Cervical: Normal appearance Sacral: Normal appearance Thoracic: Normal appearance Shape/Curvature: Normal appearance Lumbar: Normal appearance Thorax SVC: Normal appearance IVC: Normal Appearance Impression 1. Hines live intrautine at 20w 1d. 2. Anatomy not visualized on prior exam appears normal. This completes the anatomic suvey. 3. Anterior placenta. Additional follow-up as clinically indicated. Ultrasound is not diagnostic of chromosomal aneuploidy and does not detect all subtle defects. Normal ultrasound findings do not guarantee normal outcomes. Ultrasound Report Isaura Desir MD Electronically Signed Final Report 11/20/2020 01:28 pm --- Final --- Dictated: 11/20/2020 10:14 am Dictating Physician: ISAURA HERNANDEZ Signed Date and Time: 11/20/2020 1:29 pm Signed by: ISAURA HERNANDEZ [facility] Work Phone: [facility] Work Phone: [facility] US After 1st T rimesteron 11-06-2020 [facility] US After 1st Trimester Patient Name: ELO BOWDEN Maternal Medicine ACCESSION EXAM DATE/TIME PROCEDURE ORDERING PROVIDER [id number] 11/06/2020 10:09 EDT MFM US After RU WALL KIMBERLY E. 1st Trimester Reason For Exam ([facility] US After 1st Trimester) Anatomy Report OBSTETRICS REPORT (Signed Final 11/06/2020 03:42 pm) Patient Info ID #: [id number] : [birth year] (25 yrs) Name: ELO BOWDEN Visit Date: 11/06/2020 10:06 am Performed By Attending: Brynn Valenzuela Referred By: SYBIL WALL DO FACOG RU Performed By: Shell Medina Visit Type: Outpatient Service(s) Provided US >= 14 weeks 66577 US Transvaginal 88196 Indications Anatomy/Cervical Length Vital Signs Weight (lb): 138 Height: 5'4 BMI: 23.69 Evaluation Num Of Fetuses: 1 Heart Rate(bpm): 150 Cardiac Activity: Observed Lie: Breech Presentation: Breech, sue Placenta: Anterior P. Cord Insertion: Normal Amniotic Fluid LUIS FV: Appropriate for gestational age Biometry -------- BPD: 44.3 mm G. Age: 19w 3d 92 % CI: 85.7 % 70 - 86 OFD: 51.7 mm FL/HC: 19.3 % 15.8 - 18 HC: 153.2 mm G. Age: 18w 2d 51 % HC/AC: 1.10 1.07 - 1.29 AC: 138.9 mm G. Age: 19w 2d 82 % FL/BPD: 66.6 % Maternal Medicine Report FL: 29.5 mm G. Age: 19w 1d 77 % FL/AC: 21.2 % 20 - 24 HUM: 31.4 mm G. Age: 20w 3d > 95 % CER: 17.9 mm G. Age: 17w 6d 42 % NFT: 4.89 mm CM: 3.02 mm Est. FW: 275 gm 0 lb 10 oz Gestational Age LMP: 19w 6d Date: 06/20/20 RAE: 03/27/21 U/S Today: 19w 0d RAE: 04/02/21 Best: 18w 1d Det. By: U/S Alison Giulia Reece (08/23/20) RAE: 04/08/21 Targeted Anatomy Central Nervous System Calvarium/Cranial V.: Normal appearance Choroid Plexus: Normal appearance Intracranial Piedad: Normal appearance Cereb./Vermis: Normal appearance Cavum: Normal appearance Cisterna Magna: Normal appearance Parenchyma: Normal appearance Midline Falx: Normal appearance Lateral Ventricles: Normal appearance Spine Cervical: Suboptimal views Sacral: Suboptimal views Thoracic: Suboptimal views Shape/Curvature: Suboptimal views Lumbar: Suboptimal views Head/Neck Face: Normal appearance Palate: Normal appearance Lips: Normal appearance Profile: Normal appearance Neck: Normal appearance Orbits/Eyes: Normal appearance Nuchal Fold: Normal appearance Mandible: Normal appearance Nasal Bone: Present Maxilla: Normal appearance Thorax Thoracic Contour: Normal appearance Ductal Arch: Normal appearance Lungs: Normal appearance SVC: Suboptimal Views 4 Chamber View: Normal appearance Interventr. Septum: Normal appearance Cardiac Activity: Observed Cardiac [place]: Normal appearance Cardiac Rhythm: Normal Diaphragm: Normal appearance Cardiac Situs: Normal appearance 3 Vessel View: Normal appearance Rt Outflow Tract: Normal appearance 3 V Trachea View: Normal appearance Lt Outflow Tract: Normal appearance IVC: Suboptimal Aortic Arch: Normal appearance Crossing: Normal appearance Abdomen Ventral Wall: Normal appearance Lt Kidney: Normal appearance Cord Insertion: Normal appearance Rt Kidney: Normal appearance Situs: Normal appearance Bladder: Normal appearance Stomach: Normal appearance Bowel: Normal appearance Liver: Normal appearance Extremities Lt Humerus: Normal appearance Lt Femur: Normal appearance Rt Humerus: Normal appearance Rt Femur: Normal appearance Lt Forearm: Normal appearance Lt Lower Leg: Normal appearance Rt Forearm: Normal appearance Rt Lower Leg: Normal appearance Lt Hand: Normal appearance Lt Foot: Normal appearance Rt Hand: Normal appearance Rt Foot: Normal appearance Other Maternal Medicine Report Umbilical Cord: Normal 3-vessel Genitalia: Male Cervix Uterus Adnexa Cervix Length: 3.77 cm. Within Normal Limits Right Ovary Not visualized Left Ovary Size(cm) 2.95 x 1.66 x 1.51 Vol(ml): 3.87 Impression 1. Hines live intrautine at 18w 1d. 2. Normal anatomy, with limitations as noted above. 3. biometry consistent with clinically established RAE. 4. Anterior placenta. 5. Transvaginal cervical length is normal, 3.77 cm. Recommendations: 1. Follow-up limited anatomy in 2 weeks. 2. Additional follow-up as clinically indicated. Ultrasound is not diagnostic of chromosomal aneuploidy and does not detect all subtle defects. Normal ultrasound findings do not guarantee normal outcomes. Brynn Valenzuela DO, FACOG Electronically Signed Final Report 11/06/2020 03:42 pm Final Dictated: 11/06/2020 10:06 am Dictating Physician: DO VALENZUELA KATHERINE BRIDGET Signed Date and Time: 11/06/2020 3:42 pm Signed by: DO VALENZUELA KATHERINE BRIDGET Ultrasound ACCESSION EXAM DATE/TIME PROCEDURE ORDERING PROVIDER (more content not included)... Normal [facility] US Transvagina nadeen 11-06-2020 [facility] US Transvaginal Patient Name: ELO BOWEDN Maternal Medicine ACCESSION EXAM DATE/TIME PROCEDURE ORDERING PROVIDER [id number] 11/06/2020 10:09 EDT [facility] US After RU WALL KIMBERLY E. 1st Trimester Reason For Exam ([facility] US After 1st Trimester) CL screening Report OBSTETRICS REPORT (Signed Final 11/06/2020 03:42 pm) Patient Info ID #: [id number] : [birth year] (25 yrs) Name: ELO BOWDEN Visit Date: 11/06/2020 10:06 am Performed By Attending: Brynn Valenzuela Referred By: SYBIL WALL DO, FACOG CNP Performed By: Shell Medina Visit Type: Outpatient Service(s) Provided US >= 14 weeks 45274 US Transvaginal 96128 Indications Anatomy/Cervical Length Vital Signs Weight (lb): 138 Height: 5'4 BMI: 23.69 Evaluation Num Of Fetuses: 1 Heart Rate(bpm): 150 Cardiac Activity: Observed Lie: Breech Presentation: Breech, sue Placenta: Anterior P. Cord Insertion: Normal Amniotic Fluid LUIS FV: Appropriate for gestational age Biometry -------- BPD: 44.3 mm G. Age: 19w 3d 92 % CI: 85.7 % 70 - 86 OFD: 51.7 mm FL/HC: 19.3 % 15.8 - 18 HC: 153.2 mm G. Age: 18w 2d 51 % HC/AC: 1.10 1.07 - 1.29 AC: 138.9 mm G. Age: 19w 2d 82 % FL/BPD: 66.6 % Maternal Medicine Report FL: 29.5 mm G. Age: 19w 1d 77 % FL/AC: 21.2 % 20 - 24 HUM: 31.4 mm G. Age: 20w 3d > 95 % CER: 17.9 mm G. Age: 17w 6d 42 % NFT: 4.89 mm CM: 3.02 mm Est. FW: 275 gm 0 lb 10 oz Gestational Age LMP: 19w 6d Date: 06/20/20 RAE: 03/27/21 U/S Today: 19w 0d RAE: 04/02/21 Best: 18w 1d Det. By: U/S Alison Reece (08/23/20) RAE: 04/08/21 Targeted Anatomy Central Nervous System Calvarium/Cranial V.: Normal appearance Choroid Plexus: Normal appearance Intracranial Piedad: Normal appearance Cereb./Vermis: Normal appearance Cavum: Normal appearance Cisterna Magna: Normal appearance Parenchyma: Normal appearance Midline Falx: Normal appearance Lateral Ventricles: Normal appearance Spine Cervical: Suboptimal views Sacral: Suboptimal views Thoracic: Suboptimal views Shape/Curvature: Suboptimal views Lumbar: Suboptimal views Head/Neck Face: Normal appearance Palate: Normal appearance Lips: Normal appearance Profile: Normal appearance Neck: Normal appearance Orbits/Eyes: Normal appearance Nuchal Fold: Normal appearance Mandible: Normal appearance Nasal Bone: Present Maxilla: Normal appearance Thorax Thoracic Contour: Normal appearance Ductal Arch: Normal appearance Lungs: Normal appearance SVC: Suboptimal Views 4 Chamber View: Normal appearance Interventr. Septum: Normal appearance Cardiac Activity: Observed Cardiac [place]: Normal appearance Cardiac Rhythm: Normal Diaphragm: Normal appearance Cardiac Situs: Normal appearance 3 Vessel View: Normal appearance Rt Outflow Tract: Normal appearance 3 V Trachea View: Normal appearance Lt Outflow Tract: Normal appearance IVC: Suboptimal Aortic Arch: Normal appearance Crossing: Normal appearance Abdomen Ventral Wall: Normal appearance Lt Kidney: Normal appearance Cord Insertion: Normal appearance Rt Kidney: Normal appearance Situs: Normal appearance Bladder: Normal appearance Stomach: Normal appearance Bowel: Normal appearance Liver: Normal appearance Extremities Lt Humerus: Normal appearance Lt Femur: Normal appearance Rt Humerus: Normal appearance Rt Femur: Normal appearance Lt Forearm: Normal appearance Lt Lower Leg: Normal appearance Rt Forearm: Normal appearance Rt Lower Leg: Normal appearance Lt Hand: Normal appearance Lt Foot: Normal appearance Rt Hand: Normal appearance Rt Foot: Normal appearance Other Maternal Medicine Report Umbilical Cord: Normal 3-vessel Genitalia: Male Cervix Uterus Adnexa Cervix Length: 3.77 cm. Within Normal Limits Right Ovary Not visualized Left Ovary Size(cm) 2.95 x 1.66 x 1.51 Vol(ml): 3.87 Impression 1. Hines live intrautine at 18w 1d. 2. Normal anatomy, with limitations as noted above. 3. biometry consistent with clinically established RAE. 4. Anterior placenta. 5. Transvaginal cervical length is normal, 3.77 cm. Recommendations: 1. Follow-up limited anatomy in 2 weeks. 2. Additional follow-up as clinically indicated. Ultrasound is not diagnostic of chromosomal aneuploidy and does not detect all subtle defects. Normal ultrasound findings do not guarantee normal outcomes. Brynn Valenzuela DO, FACOG Electronically Signed Final Report 11/06/2020 03:42 pm Final Dictated: 11/06/2020 10:06 am Dictating Physician: DO VALENZUELA KATHERINE BRIDGET Signed Date and Time: 11/06/2020 3:42 pm Signed by: DO VALENZUELA KATHERINE BRIDGET Ultrasound ACCESSION EXAM DATE/TIME PROCEDURE ORDERING PROVIDER (more content not included)... Normal [facility] RADIOLOGY REPORTOrdered By: Scanning on 11-06-2020 [facility] Work Phone: US OB 14 PLUS WEEKS SINGLE O R FIRST GESTATIONOrdered By: Sybil Wall on 11-06-2020 Patient Name: ELO LUU MS Maternal Medicine ACCESSION EXAM DATE/TIME PROCEDURE ORDERING PROVIDER [id number] 11/06/2020 10:09 EDT M US After RU WALL KIMBERLY E. 1st Trimester Reason For Exam (M US After 1st Trimester) Anatomy Report OBSTETRICS REPORT (Signed Final 11/06/2020 03:42 pm) Patient Info ID #: [id number] : [birth year] (25 yrs) Name: ELO BOWDEN Visit Date: 11/06/2020 10:06 am Performed By Attending: Brynn Valenzuela Referred By: SYBIL WALL DO, FACOG CNP Performed By: Shell Medina Visit Type: Outpatient Service(s) Provided US >= 14 weeks 76371 US Transvaginal 23369 Indications Anatomy/Cervical Length Vital Signs Weight (lb): 138 Height: 5'4 BMI: 23.69 Evaluation Num Of Fetuses: 1 Heart Rate(bpm): 150 Cardiac Activity: Observed Lie: Breech Presentation: Breech, sue Placenta: Anterior P. Cord Insertion: Normal Amniotic Fluid LUIS FV: Appropriate for gestational age Biometry -------- BPD: 44.3 mm G. Age: 19w 3d 92 % CI: 85.7 % 70 - 86 OFD: 51.7 mm FL/HC: 19.3 % 15.8 - 18 HC: 153.2 mm G. Age: 18w 2d 51 % HC/AC: 1.10 1.07 - 1.29 AC: 138.9 mm G. Age: 19w 2d 82 % FL/BPD: 66.6 % Maternal Medicine Report FL: 29.5 mm G. Age: 19w 1d 77 % FL/AC: 21.2 % 20 - 24 HUM: 31.4 mm G. Age: 20w 3d > 95 % CER: 17.9 mm G. Age: 17w 6d 42 % NFT: 4.89 mm CM: 3.02 mm Est. FW: 275 gm 0 lb 10 oz Gestational Age LMP: 19w 6d Date: 06/20/20 RAE: 03/27/21 U/S Today: 19w 0d RAE: 04/02/21 Best: 18w 1d Det. By: U/S C R L (08/23/20) RAE: 04/08/21 Targeted Anatomy Central Nervous System Calvarium/Cranial V.: Normal appearance Choroid Plexus: Normal appearance Intracranial Piedad: Normal appearance Cereb./Vermis: Normal appearance Cavum: Normal appearance Cisterna Magna: Normal appearance Parenchyma: Normal appearance Midline Falx: Normal appearance Lateral Ventricles: Normal appearance Spine Cervical: Suboptimal views Sacral: Suboptimal views Thoracic: Suboptimal views Shape/Curvature: Suboptimal views Lumbar: Suboptimal views Head/Neck Face: Normal appearance Palate: Normal appearance Lips: Normal appearance Profile: Normal appearance Neck: Normal appearance Orbits/Eyes: Normal appearance Nuchal Fold: Normal appearance Mandible: Normal appearance Nasal Bone: Present Maxilla: Normal appearance Thorax Thoracic Contour: Normal appearance Ductal Arch: Normal appearance Lungs: Normal appearance SVC: Suboptimal Views 4 Chamber View: Normal appearance Interventr. Septum: Normal appearance Cardiac Activity: Observed Cardiac [place]: Normal appearance Cardiac Rhythm: Normal Diaphragm: Normal appearance Cardiac Situs: Normal appearance 3 Vessel View: Normal appearance Rt Outflow Tract: Normal appearance 3 V Trachea View: Normal appearance Lt Outflow Tract: Normal appearance IVC: Suboptimal Aortic Arch: Normal appearance Crossing: Normal appearance Abdomen Ventral Wall: Normal appearance Lt Kidney: Normal appearance Cord Insertion: Normal appearance Rt Kidney: Normal appearance Situs: Normal appearance Bladder: Normal appearance Stomach: Normal appearance Bowel: Normal appearance Liver: Normal appearance Extremities Lt Humerus: Normal appearance Lt Femur: Normal appearance Rt Humerus: Normal appearance Rt Femur: Normal appearance Lt Forear (more content not included)... [facility] Work Phone: [facility], [facility] Incoming Radiology Results From [facility] - 11/06/2020 3:42 PM EDT Patient Name: ELO BOWDEN Maternal Medicine ACCESSION EXAM DATE/TIME PROCEDURE ORDERING PROVIDER [id number] 11/06/2020 10:09 EDT MFM US After RU WALL KIMBERLY E. 1st Trimester Reason For Exam (MFM US After 1st Trimester) Anatomy Report OBSTETRICS REPORT (Signed Final 11/06/2020 03:42 pm) Patient Info ID #: [id number] : [birth year] (25 yrs) Name: ELO BOWDEN Visit Date: 11/06/2020 10:06 am Performed By Attending: Brynn Valenzuela Referred By: SYBIL WALL DO, FACOG CNP Performed By: Shell Medina Visit Type: Outpatient Service(s) Provided US >= 14 weeks 43721 US Transvaginal 88273 Indications Anatomy/Cervical Length Vital Signs Weight (lb): 138 Height: 5'4 BMI: 23.69 Evaluation Num Of Fetuses: 1 Heart Rate(bpm): 150 Cardiac Activity: Observed Lie: Breech Presentation: Breech, sue Placenta: Anterior P. Cord Insertion: Normal Amniotic Fluid LUIS FV: Appropriate for gestational age Biometry -------- BPD: 44.3 mm G. Age: 19w 3d 92 % CI: 85.7 % 70 - 86 OFD: 51.7 mm FL/HC: 19.3 % 15.8 - 18 HC: 153.2 mm G. Age: 18w 2d 51 % HC/AC: 1.10 1.07 - 1.29 AC: 138.9 mm G. Age: 19w 2d 82 % FL/BPD: 66.6 % Maternal Medicine Report FL: 29.5 mm G. Age: 19w 1d 77 % FL/AC: 21.2 % 20 - 24 HUM: 31.4 mm G. Age: 20w 3d > 95 % CER: 17.9 mm G. Age: 17w 6d 42 % NFT: 4.89 mm CM: 3.02 mm Est. FW: 275 gm 0 lb 10 oz Gestational Age LMP: 19w 6d Date: 06/20/20 RAE: 03/27/21 U/S Today: 19w 0d RAE: 04/02/21 Best: 18w 1d Det. By: U/S C Giulia L (08/23/20) RAE: 04/08/21 Targeted Anatomy Central Nervous System Calvarium/Cranial V.: Normal appearance Choroid Plexus: Normal appearance Intracranial Piedad: Normal appearance Cereb./Vermis: Normal appearance Cavum: Normal appearance Cisterna Magna: Normal appearance Parenchyma: Normal appearance Midline Falx: Normal appearance Lateral Ventricles: Normal appearance Spine Cervical: Suboptimal views Sacral: Suboptimal views Thoracic: Suboptimal views Shape/Curvature: Suboptimal views Lumbar: Suboptimal views Head/Neck Face: Normal appearance Palate: Normal appearance Lips: Normal appearance Profile: Normal appearance Neck: Normal appearance Orbits/Eyes: Normal appearance Nuchal Fold: Normal appearance Mandible: Normal appearance Nasal Bone: Present Maxilla: Normal appearance Thorax Thoracic Contour: Normal appearance Ductal Arch: Normal appearance Lungs: Normal appearance SVC: Suboptimal Views 4 Chamber View: Normal appearance Interventr. Septum: Normal appearance Cardiac Activity: Observed Cardiac [place]: Normal appearance Cardiac Rhythm: Normal Diaphragm: Normal appearance Cardiac Situs: Normal appearance 3 Vessel View: Normal appearance Rt Outflow Tract: Normal appearance 3 V Trachea View: Normal appearance Lt Outflow Tract: Normal appearance IVC: Suboptimal Aortic Arch: Normal appearance Crossing: Normal appearance Abdomen Ventral Wall: Normal appearance Lt Kidney: Normal appearance Cord Insertion: Normal appearance Rt Kidney: Normal appearance Situs: Normal appearance Bladder: Normal appearance Stomach: Normal appearance Bowel: Normal appearance Liver: Normal appearance Extremities Lt Humerus: Normal appearance Lt Femur: Normal appearance Rt Humerus: Normal appearance Rt Femur: Normal appearance Lt Forearm: Normal appearance Lt Lower Leg: Normal appearance Rt Forearm: Normal appearance Rt Lower Leg: Normal appearance Lt Hand: Normal appearance Lt Foot: Normal appearance Rt Hand: Normal appearance Rt Foot: Normal appearance Other Maternal Medicine Report Umbilical Cord: Normal 3-vessel Genitalia: Male Cervix Uterus Adnexa Cervix Length: 3.77 cm. Within Normal Limits Right Ovary Not visualized Left Ovary Size(cm) 2.95 x 1.66 x 1.51 Vol(ml): 3.87 Impression 1. Hines live intrautine at 18w 1d. 2. Normal anatomy, with limitations as noted above. 3. biometry consistent with clinically established RAE. 4. Anterior placenta. 5. Transvaginal cervical length is normal, 3.77 cm. Recommendations: 1. Follow-up limited anatomy in 2 weeks. 2. Additional follow-up as clinically indicated. Ultrasound is not diagnostic of chromosomal aneuploidy and does not detect all subtle defects. Normal ultrasound findings do not guarantee normal outcomes. Brynn Valenzuela DO, DIANA Electronically Signed Final Report 11/06/2020 03:42 pm --- Final --- Dictated: 11/06/2020 10:06 am Dictating Physician: WILFREDO (more content not included)... [facility] Work Phone: [facility] Work Phone: US OB TRANSVAGINALOrdered By : Sybil Wall on 11-06-2020 Patient Name: ELO BOWDEN Maternal Medicine ACCESSION EXAM DATE/TIME PROCEDURE ORDERING PROVIDER [id number] 11/06/2020 10:09 EDT [facility] US After RU WALL KIMBERLY E. 1st Trimester Reason For Exam ([facility] US After 1st Trimester) CL screening Report OBSTETRICS REPORT (Signed Final 11/06/2020 03:42 pm) Patient Info ID #: [id number] : [birth year] (25 yrs) Name: ELO BOWDEN Visit Date: 11/06/2020 10:06 am Performed By Attending: Brynn Valenzuela Referred By: SYBIL WALL DO, FACOG [employer] IMAGING COORDINATOR Performed By: Shell Medina Visit Type: Outpatient Service(s) Provided US >= 14 weeks 51406 US Transvaginal 15250 Indications Anatomy/Cervical Length Vital Signs Weight (lb): 138 Height: 5'4 BMI: 23.69 Evaluation Num Of Fetuses: 1 Heart Rate(bpm): 150 Cardiac Activity: Observed Lie: Breech Presentation: Breech, sue Placenta: Anterior P. Cord Insertion: Normal Amniotic Fluid LUIS FV: Appropriate for gestational age Biometry -------- BPD: 44.3 mm G. Age: 19w 3d 92 % CI: 85.7 % 70 - 86 OFD: 51.7 mm FL/HC: 19.3 % 15.8 - 18 HC: 153.2 mm G. Age: 18w 2d 51 % HC/AC: 1.10 1.07 - 1.29 AC: 138.9 mm G. Age: 19w 2d 82 % FL/BPD: 66.6 % Maternal Medicine Report FL: 29.5 mm G. Age: 19w 1d 77 % FL/AC: 21.2 % 20 - 24 HUM: 31.4 mm G. Age: 20w 3d > 95 % CER: 17.9 mm G. Age: 17w 6d 42 % NFT: 4.89 mm CM: 3.02 mm Est. FW: 275 gm 0 lb 10 oz Gestational Age LMP: 19w 6d Date: 06/20/20 RAE: 03/27/21 U/S Today: 19w 0d RAE: 04/02/21 Best: 18w 1d Det. By: U/S C R L (08/23/20) RAE: 04/08/21 Targeted Anatomy Central Nervous System Calvarium/Cranial V.: Normal appearance Choroid Plexus: Normal appearance Intracranial Piedad: Normal appearance Cereb./Vermis: Normal appearance Cavum: Normal appearance Cisterna Magna: Normal appearance Parenchyma: Normal appearance Midline Falx: Normal appearance Lateral Ventricles: Normal appearance Spine Cervical: Suboptimal views Sacral: Suboptimal views Thoracic: Suboptimal views Shape/Curvature: Suboptimal views Lumbar: Suboptimal views Head/Neck Face: Normal appearance Palate: Normal appearance Lips: Normal appearance Profile: Normal appearance Neck: Normal appearance Orbits/Eyes: Normal appearance Nuchal Fold: Normal appearance Mandible: Normal appearance Nasal Bone: Present Maxilla: Normal appearance Thorax Thoracic Contour: Normal appearance Ductal Arch: Normal appearance Lungs: Normal appearance SVC: Suboptimal Views 4 Chamber View: Normal appearance Interventr. Septum: Normal appearance Cardiac Activity: Observed Cardiac [place]: Normal appearance Cardiac Rhythm: Normal Diaphragm: Normal appearance Cardiac Situs: Normal appearance 3 Vessel View: Normal appearance Rt Outflow Tract: Normal appearance 3 V Trachea View: Normal appearance Lt Outflow Tract: Normal appearance IVC: Suboptimal Aortic Arch: Normal appearance Crossing: Normal appearance Abdomen Ventral Wall: Normal appearance Lt Kidney: Normal appearance Cord Insertion: Normal appearance Rt Kidney: Normal appearance Situs: Normal appearance Bladder: Normal appearance Stomach: Normal appearance Bowel: Normal appearance Liver: Normal appearance Extremities Lt Humerus: Normal appearance Lt Femur: Normal appearance Rt Humerus: Normal appearance Rt Femur: Normal appearance Lt F (more content not included)... [facility] Work Phone: [facility], [facility] Incoming Radiology Results From [facility] - 11/06/2020 3:42 PM EDT Patient Name: ELO BOWDEN Maternal Medicine ACCESSION EXAM DATE/TIME PROCEDURE ORDERING PROVIDER [id number] 11/06/2020 10:09 EDT M US After RU WALL KIMBERLY E. 1st Trimester Reason For Exam (M US After 1st Trimester) CL screening Report OBSTETRICS REPORT (Signed Final 11/06/2020 03:42 pm) Patient Info ID #: [id number] : [birth year] (25 yrs) Name: ELO BOWDEN Visit Date: 11/06/2020 10:06 am Performed By Attending: Brynn Valenzuela Referred By: SYBIL WALL DO, FACOG MAG[employer] IMAGING COORDINATOR Performed By: Shell Medina Visit Type: Outpatient Service(s) Provided US >= 14 weeks 69501 US Transvaginal 87378 Indications Anatomy/Cervical Length Vital Signs Weight (lb): 138 Height: 5'4 BMI: 23.69 Evaluation Num Of Fetuses: 1 Heart Rate(bpm): 150 Cardiac Activity: Observed Lie: Breech Presentation: Breech, sue Placenta: Anterior P. Cord Insertion: Normal Amniotic Fluid LUIS FV: Appropriate for gestational age Biometry -------- BPD: 44.3 mm G. Age: 19w 3d 92 % CI: 85.7 % 70 - 86 OFD: 51.7 mm FL/HC: 19.3 % 15.8 - 18 HC: 153.2 mm G. Age: 18w 2d 51 % HC/AC: 1.10 1.07 - 1.29 AC: 138.9 mm G. Age: 19w 2d 82 % FL/BPD: 66.6 % Maternal Medicine Report FL: 29.5 mm G. Age: 19w 1d 77 % FL/AC: 21.2 % 20 - 24 HUM: 31.4 mm G. Age: 20w 3d > 95 % CER: 17.9 mm G. Age: 17w 6d 42 % NFT: 4.89 mm CM: 3.02 mm Est. FW: 275 gm 0 lb 10 oz Gestational Age LMP: 19w 6d Date: 06/20/20 RAE: 03/27/21 U/S Today: 19w 0d RAE: 04/02/21 Best: 18w 1d Det. By: U/S Alison Reece (08/23/20) RAE: 04/08/21 Targeted Anatomy Central Nervous System Calvarium/Cranial V.: Normal appearance Choroid Plexus: Normal appearance Intracranial Piedad: Normal appearance Cereb./Vermis: Normal appearance Cavum: Normal appearance Cisterna Magna: Normal appearance Parenchyma: Normal appearance Midline Falx: Normal appearance Lateral Ventricles: Normal appearance Spine Cervical: Suboptimal views Sacral: Suboptimal views Thoracic: Suboptimal views Shape/Curvature: Suboptimal views Lumbar: Suboptimal views Head/Neck Face: Normal appearance Palate: Normal appearance Lips: Normal appearance Profile: Normal appearance Neck: Normal appearance Orbits/Eyes: Normal appearance Nuchal Fold: Normal appearance Mandible: Normal appearance Nasal Bone: Present Maxilla: Normal appearance Thorax Thoracic Contour: Normal appearance Ductal Arch: Normal appearance Lungs: Normal appearance SVC: Suboptimal Views 4 Chamber View: Normal appearance Interventr. Septum: Normal appearance Cardiac Activity: Observed Cardiac [place]: Normal appearance Cardiac Rhythm: Normal Diaphragm: Normal appearance Cardiac Situs: Normal appearance 3 Vessel View: Normal appearance Rt Outflow Tract: Normal appearance 3 V Trachea View: Normal appearance Lt Outflow Tract: Normal appearance IVC: Suboptimal Aortic Arch: Normal appearance Crossing: Normal appearance Abdomen Ventral Wall: Normal appearance Lt Kidney: Normal appearance Cord Insertion: Normal appearance Rt Kidney: Normal appearance Situs: Normal appearance Bladder: Normal appearance Stomach: Normal appearance Bowel: Normal appearance Liver: Normal appearance Extremities Lt Humerus: Normal appearance Lt Femur: Normal appearance Rt Humerus: Normal appearance Rt Femur: Normal appearance Lt Forearm: Normal appearance Lt Lower Leg: Normal appearance Rt Forearm: Normal appearance Rt Lower Leg: Normal appearance Lt Hand: Normal appearance Lt Foot: Normal appearance Rt Hand: Normal appearance Rt Foot: Normal appearance Other Maternal Medicine Report Umbilical Cord: Normal 3-vessel Genitalia: Male Cervix Uterus Adnexa Cervix Length: 3.77 cm. Within Normal Limits Right Ovary Not visualized Left Ovary Size(cm) 2.95 x 1.66 x 1.51 Vol(ml): 3.87 Impression 1. Hines live intrautine at 18w 1d. 2. Normal anatomy, with limitations as noted above. 3. biometry consistent with clinically established RAE. 4. Anterior placenta. 5. Transvaginal cervical length is normal, 3.77 cm. Recommendations: 1. Follow-up limited anatomy in 2 weeks. 2. Additional follow-up as clinically indicated. Ultrasound is not diagnostic of chromosomal aneuploidy and does not detect all subtle defects. Normal ultrasound findings do not guarantee normal outcomes. Brynnmolly Valenzuela DO, FACOG Electronically Signed Final Report 11/06/2020 03:42 pm --- Final --- Dictated: 11/06/2020 10:06 am Dictating Physicia (more content not included)... [facility] Work Phone: [facility] Work Phone: Complete Urinalysison 2020 Appearance (U) Ex.Turbid Abnormal Clear [facility] Comment on above: Result Comment: . Performed By: #### C UA2 #### [facility] [address] [place], [place] Bacteria Few Abnormal Negative [facility] Comment on above: Result Comment: . Performed By: #### C UA2 #### [facility] [address] [place], [place] Bilirubin,Urine Negative Normal Negative [facility] Comment on above: Result Comment: . Performed By: #### C UA2 #### [facility] [address] [place], [place] Cast, Hyaline Negative Normal Negative [facility] Comment on above: Result Comment: . Performed By: #### C UA2 #### [facility] [address] [place], [place] Color (U) Yellow Normal Lt. Yellow [facility] Comment on above: Result Comment: . Performed By: #### C UA2 #### [facility] [address] [place], [place] Glucose Ql (U) Normal Normal Normal (<70) [facility] Comment on above: Result Comment: . Performed By: #### C UA2 #### [facility] [address] [place], [place] Ketone,Urine Negative Normal Negative [facility] Comment on above: Result Comment: . Performed By: #### C UA2 #### [facility] [address] [place], [place] Leukocytes,Urine 25 Gillian/uL Abnormal Negative [facility] Comment on above: Result Comment: . Performed By: #### C UA2 #### [facility] [address] [place], [place] Mucous Threads Moderate Abnormal Negative [facility] Comment on above: Result Comment: . Performed By: #### C UA2 #### [place] [address] [place], [place] Nitrites,Urine Negative Normal Negative [facility] Comment on above: Result Comment: . Performed By: #### C UA2 #### [place] [address] [address] [place], [place] Occult Blood,Urine Negative Normal Negative [facility] Comment on above: Result Comment: . Performed By: #### C UA2 #### [place] [address] [address] [place], [place] pH,Urine 7.0 Normal 5.0-8.0 [facility] Comment on above: Result Comment: . Performed By: #### C UA2 #### [place] [address] [place], [place] Protein (U) [Mass/Vol] 50 mg/dL Abnormal Negative [facility] Comment on above: Result Comment: . Performed By: #### C UA2 #### [place] [address] [address] [place], [place] RBC, Urine 3 - 5 Abnormal 0-2 [facility] Comment on above: Result Comment: . Performed By: #### C UA2 #### [place] [address] [place], [place] Specific [place],Urine 1.020 Normal 1.005 - 1.030 [facility] Comment on above: Result Comment: . Performed By: #### C UA2 #### [place] [address] [place], [place] Squamous Epithelial > 100 Abnormal 3-5 [facility] Comment on above: Result Comment: . Performed By: #### C UA2 #### [place] [address] [address] [place], [place] Urobilinogen,Urine Normal Normal Normal (0-1) [facility] Comment on above: Result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 history. History reviewed. No pertinent surgical history. Social History Socioeconomic History ? Marital status: Single Spouse name: None ? Number of children: None ? Years of education: None ? Highest education level: None Occupational History ? None Social Needs ? Financial resource strain: None ? Food insecurity Worry: None Inability: None ? Transportation needs Medical: None Non-medical: None Tobacco Use ? Smoking status: Current Every Day Smoker ? Smokeless tobacco: Never Used ? Tobacco comment: quit since becoming . Substance and Sexual Activity ? Alcohol use: Not Currently Comment: daily drinker ? Drug use: No ? Sexual activity: None Lifestyle ? Physical activity Days per week: None Minutes per session: None ? Stress: None Relationships ? Social connections Talks on phone: None Gets together: None Attends scientologist service: None Active member of club or organization: None Attends meetings of clubs or organizations: None Relationship status: None ? Intimate partner violence Fear of current or ex partner: None Emotionally abused: None Physically abused: None Forced sexual activity: None Other Topics Concern ? None Social History Narrative ? None Medications/Allergies Previous Medications DOXYLAMINE SUCCINATE (GNP SLEEP AID) 25 MG TABLET Take 0.5 tablets by mouth nightly VIT-FE FUMARATE-FA ( VITAMIN) 27-1 MG TABS TABLET Take 1 tablet by mouth daily VITAMIN B-6 (PYRIDOXINE) 25 MG TABLET Take 1 tablet by mouth 3 times daily No Known Allergies Physical Exam ED Triage Vitals [08/25/201999] BP Temp Temp Source Pulse Resp SpO2 Height Weight 122/65 98.1 ?F (36.7 ?C) Oral 87 16 100 % 5' 6 (1.676 m) 130 lb (59 kg) Physical Exam General: Well developed, well nourished. Neurologic: A&Ox3. HEENT: Normocephalic, atraumatic. Neck: supple. Eyes: Conjunctiva clear. Cardiac: Regular rate/rhythm, no murmurs/rubs/gallops. Pulmonary: Clear to auscultation bilaterally. Non-labored breathing, speaks in full sentences. Abdomen:Normal active bowel sounds present in all areas. Soft, non-tender to palpation. No rebound/rigidity/guardi ng. Extremities: no edema. Skin: warm/dry. Psychiatric: Appropriate mood for chief complaint, cooperative with examination. Diagnostics Labs: Results for orders placed or performed during the hospital encounter of 08/25/20 Urinalysis Result Value Ref Range Glucose, Ur Normal Normal (<70) mg/dL Total Protein, Urine 30 (A) Negative mg/dL Bilirubin Urine Negative Negative mg/dL Urobilinogen, Urine Normal Normal (0-1) mg/dL pH, Urine 5.5 5.0 - 8.0 NA Specific [place], Urine 1.025 1.005 - 1.030 NA Occult Blood,Urine Negative Negative mg/dL Ketones, Urine Trace (A) Negative mg/dL Nitrite, Urine Negative Negative NA LEUKOCYTES, UA 250 (A) Negative Gillian/uL Appearance Turbid (A) Clear NA Color, Urine Yellow Lt. Yellow NA RBC, UA 3-5 (A) 0 - 2 /[HPF] WBC, UA 11-25 (A) 0 - 5 /[HPF] Squam Epithel, UA 26-50 (A) 3 - 5 /[HPF] Bacteria, UA Few (A) Negative /[HPF] Mucous Threads Many (A) Negative /[LPF] Radiographs: No results found. Procedures: Procedures ED Course and MDM In brief, Elo Bowden is a 25 y.o. female who presented to the emergency department for evaluation of urinary frequency, dysuria, reporting over the past 2 to 3 days. She is 7 weeks with confirmed IUP on ultrasound to have confirmed this on review of chart. No vaginal bleeding, discharge, abdominal pain, flank pain, fevers or concern for sexual transmitted infection. She is well-appearing, nontoxic nonseptic with a soft and benign abdomen. No signs of pyelo (more content not included)... Normal [place] UrinalysisOrdered By: Kristie Flowers on 08-25-2020 Appearance (U) Turbid Abnormal Clear NA [facility] Work Phone: [phone] Comment on above: . Bacteria, UA Few Abnormal Negative /[HPF] [facility] Work Phone: [phone] Comment on above: . Bilirubin Urine Negative Negative mg/dL [facility] Work Phone: [phone] Comment on above: . Color (U) Yellow Lt. Yellow NA [facility] Work Phone: [phone] Comment on above: . Glucose, Ur Normal Normal (<70) mg/dL [facility] Work Phone: [phone] Comment on above: . Interpretation and review of laboratory results Abnormal [facility] Work Phone: Ketones Ql (U) Trace Abnormal Negative mg/dL [facility] Work Phone: [phone] Comment on above: . LEUKOCYTES, UA 250 Abnormal Negative Gillian/uL [facility] Work Phone: [phone] Comment on above: . Mucous Threads Many Abnormal Negative /[LPF] [facility] Work Phone: Comment on above: . Nitrite, Urine Negative Negative NA [facility] Work Phone: Comment on above: . Occult Blood,Urine Negative Negative mg/dL [facility] Work Phone: [phone] Comment on above: . pH (U) 5.5 [pH] [facility] Work Phone: [phone] Comment on above: . Protein (U) [Mass/Vol] 30 mg/dL Abnormal Negative [facility] Work Phone: [phone] Comment on above: . RBC, UA 3-5 Abnormal 0 - 2 /[HPF] [facility] Work Phone: [phone] Comment on above: . Specific [place], Urine 1.025 S [facility] Work Phone: [phone] Comment on above: . Squam Epithel, UA 26-50 Abnormal 3 - 5 /[HPF] [facility] Work Phone: [phone] Comment on above: . Urobilinogen, Urine Normal Normal ( 0-1) mg/dL [facility] Work Phone: [phone] Comment on above: . WBC, UA 11-25 Abnormal 0 - 5 /[HPF] [facility] Work Phone: [phone] Comment on above: . Test Performed by [facility], [address] [place] [address] [facility] Work Phone: [phone] [facility] US 1st Trimest er TA Petey Gerardo 08-23-2020 [facility] US 1st Trimester TA Petey Si Patient Name: ELO BOWDEN Maternal Medicine ACCESSION EXAM DATE/TIME PROCEDURE ORDERING PROVIDER [id number] 08/23/2020 14:07 EDT [facility] US 1st RU WALL KIMBERLY E. Trimester TA Petey Si Reason For Exam ([facility] 1st Trimester TA Petey Si) christine/via Report OBSTETRICS REPORT (Signed Final 08/23/2020 03:38 pm) Patient Info ID #: [id number] : [birth year] (25 yrs) Name: ELO BOWDEN Visit Date: 08/23/2020 02:09 pm Performed By Performed By: Janiya Kern [facility] Location: [facility] Attending: Brynn Valenzuela Visit Type: Outpatient DO, FACOG Referred By: SYBIL WALL CNP Service(s) Provided US < 14 weeks 97865 Indications Less than 8 weeks gestation of Z3A.01 Dating/ Viability Vital Signs Weight (lb): 150 Height: 5'4 BMI: 25.74 Evaluation Num Of Fetuses: 1 Preg. Location: Intrauterine Gest. Sac: Seen Yolk Sac: Visualized Pole: Visualized Heart Rate(bpm): 136 Cardiac Activity: Observed Lie: Too early to determine Placenta: Too early to evaluate Amniotic Fluid LUIS FV: Clinically Appropriate Biometry Maternal Medicine Report -------- CRL: 12.4 mm G. Age: 7w 3d RAE: 04/08/21 Gestational Age LMP: 9w 1d Date: 06/20/20 RAE: 03/27/21 Best: 7w 3d Det. By: U/S C R L (08/23/20) RAE: 04/08/21 Impression - Single living fetus with a gestational age of 7w 3d with an RAE of 04/08/2021 based on today's CRL. - This is not in agreement of clinically supplied RAE . - Normal early anatomy as noted above. - Normal uterus and adnexa as noted above. Recommendations: 1. Recommend NT screening between 11-13 weeks. 2. Aneuploidy screening as ordered per primary OB. MFM/genetics consult is available if desired. 3. Anatomic survey at 18 weeks. 4. Additional follow-up as clinically indicated. Ultrasound is not diagnostic of chromosomal aneuploidy and does not detect all subtle defects. Normal ultrasound findings do not guarantee normal outcomes. Brynn Valenzuela DO, FACOG Electronically Signed Final Report 08/23/2020 03:38 pm Final Dictated: 08/23/2020 2:09 pm Dictating Physician: DO VALENZUELA KATHERINE BRIDGET Signed Date and Time: 08/23/2020 3:39 pm Signed by: DO VALENZUELA KATHERINE BRIDGET Ultrasound ACCESSION EXAM DATE/TIME PROCEDURE ORDERING PROVIDER [id number] 08/23/2020 14:07 EDT [facility] US 1st RU WALL KIMBERLY E. Trimester TA Petey Si Reason For Exam ([facility] US 1st Trimester TA Petey Si) christine/via Report OBSTETRICS REPORT (Signed Final 08/23/2020 03:38 pm) Patient Info ID #: [id number] : [birth year] (25 yrs) Name: ELO BOWDEN Visit Date: 08/23/2020 02:09 pm Performed By Performed By: Janiya Kern [facility] Location: [facility] Attending: Brynn Valenzuela Visit Type: Outpatient Ultrasound Report ATIYA MAGALLONOG Referred By: SYBIL WALL CNP Service(s) Provided US < 14 weeks 54425 Indications Less than 8 weeks gestation of Z3A.01 Dating/ Viability Vital Signs Weight (lb): 150 Height: 5'4 BMI: 25.74 Evaluation Num Of Fetuses: 1 Preg. Location: Intrauterine Gest. Sac: Seen Yolk Sac: Visualized Pole: Visualized Heart Rate(bpm): 136 Cardiac Activity: Observed Lie: Too early to determine Placenta: Too early to evaluate Amniotic Fluid LUIS FV: Clinically Appropriate Biometry -------- CRL: 12.4 mm G. Age: 7w 3d RAE: 04/08/21 Gestational Age LMP: 9w 1d Date: 06/20/20 RAE: 03/27/21 Best: 7w 3d Det. By: U/S C R L (08/23/20) RAE: 04/08/21 Impression - Single living fetus with a gestational age of 7w 3d with an RAE of 04/08/2021 based on today's CRL. - This is not in agreement of clinically supplied RAE . - Normal early anatomy as noted above. - Normal uterus and adnexa as noted above. Recommendations: 1. Recommend NT screening between 11-13 weeks. 2. Aneuploidy screening as ordered per primary OB. MFM/genetics consult is available if desired. 3. Anatomic survey at 18 weeks. 4. Additional follow-up as clinically indicated. Ultrasound is not diagnostic of chromosomal aneuploidy and does not detect all subtle defects. Normal ultrasound findings do not guarantee normal outcomes. Brynn Valenzuela DO, FACOG Ultrasound Report Electronically Signed Final Report 08/23/2020 03:38 pm Final Dictated: 08/23/2020 2:09 pm Dictating Physician: DO VALENZUELA KATHERINE BRIDGET Signed Date and Time: 08/23/2020 3:39 pm Signed by: DO VALENZUELA KATHERINE BRIDGET [facility] US OB LESS THAN 14 WEEKS SIN GLE OR FIRST GESTATIONOrdered By: Sybil Wall on 08-23-2020 Patient Name: ELO LUU MS Maternal Medicine ACCESSION EXAM DATE/TIME PROCEDURE ORDERING PROVIDER [id number] 08/23/2020 14:07 EDT [facility] US 1st RU WALL KIMBERLY E. Trimester TA Petey Si Reason For Exam ([facility] US 1st Trimester TA Petey Si) christine/via Report OBSTETRICS REPORT (Signed Final 08/23/2020 03:38 pm) Patient Info ID #: [id number] : [birth year] (25 yrs) Name: ELO BOWDEN Visit Date: 08/23/2020 02:09 pm Performed By Performed By: Janiya Kern [facility] Location: [facility] Attending: Brynn Valenzuela Visit Type: Outpatient DIANA MAGALLON Referred By: SYBIL WALL CNP Service(s) Provided US < 14 weeks 86155 Indications Less than 8 weeks gestation of Z3A.01 Dating/ Viability Vital Signs Weight (lb): 150 Height: 5'4 BMI: 25.74 Evaluation Num Of Fetuses: 1 Preg. Location: Intrauterine Gest. Sac: Seen Yolk Sac: Visualized Pole: Visualized Heart Rate(bpm): 136 Cardiac Activity: Observed Lie: Too early to determine Placenta: Too early to evaluate Amniotic Fluid LUIS FV: Clinically Appropriate Biometry Maternal Medicine Report -------- CRL: 12.4 mm G. Age: 7w 3d RAE: 04/08/21 Gestational Age LMP: 9w 1d Date: 06/20/20 RAE: 03/27/21 Best: 7w 3d Det. By: U/S C R L (08/23/20) RAE: 04/08/21 Impression - Single living fetus with a gestational age of 7w 3d with an RAE of 04/08/2021 based on today's CRL. - This is not in agreement of clinically supplied RAE . - Normal early anatomy as noted above. - Normal uterus and adnexa as noted above. Recommendations: 1. Recommend NT screening between 11-13 weeks. 2. Aneuploidy screening as ordered per primary OB. MFM/genetics consult is available if desired. 3. Anatomic survey at 18 weeks. 4. Additional follow-up as clinically indicated. Ultrasound is not diagnostic of chromosomal aneuploidy and does not detect all subtle defects. Normal ultrasound findings do not guarantee normal outcomes. Brynn Valenzuela DO, FACOG Electronically Signed Final Report 08/23/2020 03:38 pm --- Final --- Dictated: 08/23/2020 2:09 pm Dictating Physician: DO VALENZUELA KATHERINE BRIDGET Signed Date and Time: 08/23/2020 3:39 pm Signed by: DO VALENZUELA KATHERINE BRIDGET Ultrasound ACCESSION EXAM DATE/TIME PROCEDURE ORDERING PROVIDER [id number] 08/23/2020 14:07 EDT [facility] US 1st MAE, SYBIL VENCES E. Trimester TA Petye Si Reason For Exam ([facility] US 1st Trimester TA Petey Si) christine/via Report OBSTETRICS REPORT (Signed Final 08/23/2020 03:38 pm) Patient Info ID #: [id number] : [birth year] (25 yrs) Name: ELO BOWDEN Visit Date: 08/23/2020 02:09 pm Performed By Performed By: Janiya Kern [facility] Location: [facility] Attending: Brynn Valenzuela Visit Type: Outpatient Ultrasound Report DO, FACOG Referred By: SYBIL WALL CNP Service(s) Provided US < 14 weeks 17262 Indications Less than 8 weeks gestation of Z3A.01 Dating/ Viability Vital Signs Weight (lb): 150 Height: 5'4 BMI: 25.74 Evaluation Num Of Fetuses: 1 Preg. Location: Intrauterine Gest. Sac: Seen Yolk Sac: Visualized Pole: Visualized Heart Rate(bpm): 136 Cardiac Activity: Observed Lie: Too early to determine Placenta: Too early to evaluate Amniotic Fluid LUIS FV: Clinically Appropriate Biometry -------- CRL: 12.4 mm G. Age: 7w 3d RAE: 04/08/21 Gestational Age LMP: 9w 1d Date: 06/20/20 RAE: 03/27/21 Best: 7w 3d Det. By: U/S C R L (08/23/20) RAE: 04/08/21 Impression - Single living fetus with a gestational age of 7w 3d with an RAE of 04/08/2021 based on today's CRL. - This is not in agreement of clinically supplied RAE . - Normal early anatomy as noted above. - Normal uterus and (more content not included)... [facility] Work Phone: Gigi, VIOSOa Incoming Radiology Results From [facility] - 08/23/2020 3:39 PM EDT Patient Name: ELO BOWDEN Maternal Medicine ACCESSION EXAM DATE/TIME PROCEDURE ORDERING PROVIDER [id number] 08/23/2020 14:07 EDT [facility] US 1st MAE, RU, SYBIL De Los Santos. Trimester TA Petey Si Reason For Exam ([facility] US 1st Trimester TA Petey Si) christine/via Report OBSTETRICS REPORT (Signed Final 08/23/2020 03:38 pm) Patient Info ID #: [id number] : [birth year] (25 yrs) Name: ELO BOWDEN Visit Date: 08/23/2020 02:09 pm Performed By Performed By: Janiya Kern [facility] Location: [facility] Attending: Brynn Valenzuela Visit Type: Outpatient DO, FACOG Referred By: SYBIL WALL CNP Service(s) Provided US < 14 weeks 53234 Indications Less than 8 weeks gestation of Z3A.01 Dating/ Viability Vital Signs Weight (lb): 150 Height: 5'4 BMI: 25.74 Evaluation Num Of Fetuses: 1 Preg. Location: Intrauterine Gest. Sac: Seen Yolk Sac: Visualized Pole: Visualized Heart Rate(bpm): 136 Cardiac Activity: Observed Lie: Too early to determine Placenta: Too early to evaluate Amniotic Fluid LUIS FV: Clinically Appropriate Biometry Maternal Medicine Report -------- CRL: 12.4 mm G. Age: 7w 3d RAE: 04/08/21 Gestational Age LMP: 9w 1d Date: 06/20/20 RAE: 03/27/21 Best: 7w 3d Det. By: U/S C R L (08/23/20) RAE: 11/30/21 Impression - Single living fetus with a gestational age of 7w 3d with an RAE of 04/08/2021 based on today's CRL. - This is not in agreement of clinically supplied RAE . - Normal early anatomy as noted above. - Normal uterus and adnexa as noted above. Recommendations: 1. Recommend NT screening between 11-13 weeks. 2. Aneuploidy screening as ordered per primary OB. MFM/genetics consult is available if desired. 3. Anatomic survey at 18 weeks. 4. Additional follow-up as clinically indicated. Ultrasound is not diagnostic of chromosomal aneuploidy and does not detect all subtle defects. Normal ultrasound findings do not guarantee normal outcomes. Brynn Valenzuela DO, FACOG Electronically Signed Final Report 08/23/2020 03:38 pm --- Final --- Dictated: 08/23/2020 2:09 pm Dictating Physician: DO VALENZUELA KATHERINE BRIDGET Signed Date and Time: 08/23/2020 3:39 pm Signed by: DO VALENZUELA KATHERINE BRIDGET Ultrasound ACCESSION EXAM DATE/TIME PROCEDURE ORDERING PROVIDER [id number] 08/23/2020 14:07 EDT [facility] US 1st RU WALL KIMBERLY E. Trimester TA Petey Si Reason For Exam ([facility] US 1st Trimester TA Petey Si) christine/via Report OBSTETRICS REPORT (Signed Final 08/23/2020 03:38 pm) Patient Info ID #: [id number] : [birth year] (25 yrs) Name: ELO BOWDEN Visit Date: 08/23/2020 02:09 pm Performed By Performed By: Janiya Kern [facility] Location: [facility] Attending: Brynn Valenzuela Visit Type: Outpatient Ultrasound Report DIANA MAGALLON Referred By: SYBIL WALL CNP Service(s) Provided US < 14 weeks 53268 Indications Less than 8 weeks gestation of Z3A.01 Dating/ Viability Vital Signs Weight (lb): 150 Height: 5'4 BMI: 25.74 Evaluation Num Of Fetuses: 1 Preg. Location: Intrauterine Gest. Sac: Seen Yolk Sac: Visualized Pole: Visualized Heart Rate(bpm): 136 Cardiac Activity: Observed Lie: Too early to determine Placenta: Too early to evaluate Amniotic Fluid LUIS FV: Clinically Appropriate Biometry -------- CRL: 12.4 mm G. Age: 7w 3d RAE: 04/08/21 Gestational Age LMP: 9w 1d Date: 06/20/20 RAE: 03/27/21 Best: 7w 3d Det. By: U/S Alison Reece (08/23/20) RAE: 04/08/21 Impression - Single living fetus with a gestational age of 7w 3d with an RAE of 04/08/2021 based on today's CRL. - This is not in agreement of clinically supplied RAE . - Normal early anatomy as noted above. - Normal uterus and adnexa as noted above. Recommendations: 1. Recommend NT screening between 11-13 weeks. 2. Aneuploidy screening as ordered per primary OB. MFM/genetics consult is available if desired. 3. Anatomic survey at 18 weeks. 4. Additional follow-up as clinically indicated. Ultrasound is not diagnostic of chromosomal aneuploidy and does not detect all subtle defects. Normal ultrasound findings do not guarantee normal outcomes. Brynn Valenzuela DO, FACOG Ultrasound Report Electronically Signed Final Report 08/23/2020 03:38 pm --- Final --- Dictat (more content not included)... [facility] Work Phone: ED Provider Noteon ED Provider Note [facility] EMERGENCY DEPT EMERGENCY DEPARTMENT ENCOUNTER Pt Name: Elo Bowden Birthdate 1995 Date of evaluation: 06/28/2020 Provider: Sania Curran PA-C I evaluated this patient individually per the scope of my practice with a supervising physician available as needed. CHIEF COMPLAINT Chief Complaint Patient presents with ? Suture / Staple Removal Pt here to the ER for suture removal. Pt had sutures placed approx 1 week ago on left forarm. No redness or swelling noted to suture area. HISTORY OF PRESENT ILLNESS I wore a N95 respirator covered by a surgical mask and gloves for the entirety of this encounter. HPI Elo Bowden is a 25 y.o. female who presents to the emergency department via personal vehicle from home for suture removal. Patient had initially lacerated her left forearm on 2020 after slicing her left arm on a piece of broken glass. She presented to the emergency department following her injury and had updated tetanus administration as well as laceration repair completed. Presents today requesting suture removal. She denies any wound dehiscence or surrounding erythema, edema, warmth or purulent drainage from the wound site. She denies any associated pain. No distal extremity numbness, tingling or paresthesia. No history of immunocompromise. No history of poor wound healing or diabetes. Denies tobacco, alcohol and illicit drug use including IV drugs. No additional concern. Nursing Notes were reviewed and confirmed as correct. REVIEW OF SYSTEMS Review of Systems This patient's personal and family past medical history as stated in HPI and otherwise negative. ROS as stated in HPI otherwise negative, a total of 10 systems reviewed. PAST MEDICAL HISTORY No past medical history on file. SURGICAL HISTORY No past surgical history on file. CURRENTMEDICATIONS There are no discharge medications for this patient. ALLERGIES Patient has no known allergies. FAMILY HISTORY No family history on file. SOCIAL HISTORY Social History Socioeconomic History ? Marital status: Single Spouse name: Not on file ? Number of children: Not on file ? Years of education: Not on file ? Highest education level: Not on file Occupational History ? Not on file Social Needs ? Financial resource strain: Not on file ? Food insecurity Worry: Not on file Inability: Not on file ? Transportation needs Medical: Not on file Non-medical: Not on file Tobacco Use ? Smoking status: Current Every Day Smoker ? Smokeless tobacco: Never Used Substance and Sexual Activity ? Alcohol use: Yes Comment: daily drinker ? Drug use: No ? Sexual activity: Not on file Lifestyle ? Physical activity Days per week: Not on file Minutes per session: Not on file ? Stress: Not on file Relationships ? Social connections Talks on phone: Not on file Gets together: Not on file Attends scientologist service: Not on file Active member of club or organization: Not on file Attends meetings of clubs or organizations: Not on file Relationship status: Not on file ? Intimate partner violence Fear of current or ex partner: Not on file Emotionally abused: Not on file Physically abused: Not on file Forced sexual activity: Not on file Other Topics Concern ? Not on file Social History Narrative ? Not on file SCREENINGS Carlo Coma Scale Eye Opening: Spontaneous Best Verbal Response: Oriented Best Motor Response: Obeys commands [place] Coma Scale Score: 15 PHYSICAL EXAM ED Triage Vitals [06/28/20 1519] BP Temp Temp Source Pulse Resp SpO2 Height Weight 113/80 98.1 ?F (36.7 ?C) Oral 98 16 98 % 5' 4 (1.626 m) 150 lb (68 kg) Physical Exam Constitutional: Patient is AAO x3. Resting comfortably in bed, no acute distress, non-toxic in appearance. Vitals as stated above. HEENT: Head appears atraumatic and normocephalic. Neck is supple. Mucosa is moist and pink. Tolerating secretions without difficulty. Eyes: Conjunctivae are clear. Full extraocular movements intact. Cardiac: Regular rhythm and rate, S1-S2 are both audible. Respiratory: Lungs clear to auscultation in all bethea. No tachypnea. GI: Abdomen is soft, non-distended, non-tender. Musculoskeletal: No bony tenderness. Neurovascularly intact. Patient ambulates without difficulty. Vascular: Good ulnar and radial pulses bilaterally. Equal pulses bilaterally. Capillary refill is less than 2 seconds. Integumentary: 3 cm, linear, superficial healed laceration present at the left posterior forearm. X4 simple interrupted sutures present at the laceration site with adequate wound reapproximation. There is no surrounding erythema, edema, warmth or purulent wound drainage. No wound dehiscence. Neuro: no gross sensory or motor deficit. Psych: Appropriate mood and affect for chief complaint. LABS: Labs Reviewed - No data to display Radiographs: No results found. EKG: All E (more content not included)... Normal [facility] ED Provider Noteon ED Provider Note Emergency Department Encounter [facility] EMERGENCY DEPT Patient: Elo Bowden : 1995 Date of Evaluation: 2020 ED Supervising Physician: Erika Alcantar DO I independently examined and evaluated Elo Bowden. In brief, Elo Bowden is a 25 y.o. female that presents to the emergency department with laceration left forearm after falling with glass cup in her hand while intoxicated. Unknown last tetanus. Denies history of similar symptoms. Denies exacerbating or remitting factors. Denies associated numbness/tingling/weakn ess. Focused exam: BP 122/70 Pulse 59 Temp 99.1 ?F (37.3 ?C) (Oral) Resp 18 SpO2 98% Skin: 2.5 cm laceration L forearm without active bleeding. No visualized FB. Brief ED course/MDM: 25-year-old female presents for laceration left forearm. Left upper extremity neurovascularly intact. Laceration explored without visualized foreign body. Repaired per [facility] documentation. Tetanus updated. Discharged home with infection warning signs. Clinical Impression: 1. Laceration of left forearm, initial encounter All diagnostic, treatment, and disposition decisions were made by myself in conjunction with the [facility]. For all further details of the patient's emergency department visit, please see their documentation. Total critical care time today provided was at least 0 minutes. This excludes seperately billable procedure. Critical care time provided for n/a that required close evaluation and/or intervention with concern for patient decompensation. (Please note that portions of this note may have been completed with a voice recognition program. Efforts were made to edit the dictations but occasionally words are mis-transcribed.) Erika Alcantar DO [employer] Erika Alcantar DO 06/21/20 0058 [facility] ED Provider Note [facility] EMERGENCY DEPT EMERGENCY DEPARTMENT ENCOUNTER Pt Name: Elo Bowden Birthdate 1995 Date of evaluation: 2020 Provider: Noe Willingham APRN - MAGNETIC RESONANCE IMAGING COORDINATOR Patient was seen in conjunction with Dr. Alcantar whom also independently obtained history and evaluated the patient Due to concern for COVID-19 in the healthcare setting I wore protective eyewear, N95 respirator and surgical mask for the entirety of the encounter. CHIEF COMPLAINT Chief Complaint Patient presents with ? Laceration LEFT forearm laceration. pt fell on glass HISTORY OF PRESENT ILLNESS (Location/Symptom, Timing/Onset,Context/Se tting, Quality, Duration, Modifying Factors, Severity) Note limiting factors. HPI Elo Bowden is a 25 y.o. female who presents to the emergency department with complaints of laceration to the LEFT forearm. This happened just prior to arrival, states she was drinking alcohol, celebrating her birthday when she was dancing with a cup in her hand and fell. The glass cut her forearm. She denies any other injuries. Her tetanus is not up-to-date. Prior treatment includes applying pressure with a paper towel before coming here for further treatment. She denies any sensation changes, change in range of motion. No use of anticoagulation. Nursing Notes were reviewed. REVIEW OFSYSTEMS (2+ for level 4; 10+ level 5) Review of Systems All other systems reviewed and are negative except as noted in history of present illness PAST MEDICAL HISTORY History reviewed. No pertinent past medical history. SURGICAL HISTORY History reviewed. No pertinent surgical history. CURRENT MEDICATIONS Previous Medications No medications on file ALLERGIES Patient has no known allergies. FAMILY HISTORY History reviewed. No pertinent family history. SOCIAL HISTORY Social History Socioeconomic History ? Marital status: Single Spouse name: None ? Number of children: None ? Years of education: None ? Highest education level: None Occupational History ? None Social Needs ? Financial resource strain: None ? Food insecurity Worry: None Inability: None ? Transportation needs Medical: None Non-medical: None Tobacco Use ? Smoking status: Current Every Day Smoker ? Smokeless tobacco: Never Used Substance and Sexual Activity ? Alcohol use: Yes Comment: daily drinker ? Drug use: No ? Sexual activity: None Lifestyle ? Physical activity Days per week: None Minutes per session: None ? Stress: None Relationships ? Social connections Talks on phone: None Gets together: None Attends scientologist service: None Active member of club or organization: None Attends meetings of clubs or organizations: None Relationship status: None ? Intimate partner violence Fear of current or ex partner: None Emotionally abused: None Physically abused: None Forced sexual activity: None Other Topics Concern ? None Social History Narrative ? None SCREENINGS PHYSICAL EXAM (up to 7 for level 4, 8 or more for level 5) ED Triage Vitals BP Temp Temp src Pulse Resp SpO2 Height Weight -- -- -- -- -- -- -- -- Physical Exam Vitals signs and nursing note reviewed. Constitutional: General: She is not in acute distress. Appearance: She is well-developed. She is not toxic-appearing or diaphoretic. HENT: Head: Normocephalic and atraumatic. Eyes: General: Right eye: No discharge. Left eye: No discharge. Conjunctiva/sclera: Conjunctivae normal. Neck: Musculoskeletal: Normal range of motion and neck supple. Cardiovascular: Rate and Rhythm: Normal rate. Pulmonary: Effort: Pulmonary effort is normal. No respiratory distress. Musculoskeletal: Normal range of motion. General: No deformity. Skin: General: Skin is warm and dry. Comments: 3 cm linear laceration to the LEFT posterior forearm. There is no visible, palpable foreign body. No current bleeding. Radial pulses strong distally. Full range of motion of all joints of all fingers. Normal pronation supination. Normal wrist flexion, extension and hyperextension hyperflexion. Normal lateral movements. Neurological: Mental Status: She is alert and oriented to person, place, and time. GCS: GCS eye subscore is 4. GCS verbal subscore is 5. GCS motor subscore is 6. Psychiatric: Behavior: Behavior normal. Thought Content: Thought content normal. Judgment: Judgment normal. DIAGNOSTIC RESULTS EKG (Per Emergency Physician): All EKG's areinterpreted by the Emergency Department Physician in the absence of a junior engineer. Please see their note for interpretation of EKG RADIOLOGY (Per Emergency Physician): Interpretation per the Radiologist below, if available at the time ofthis note: No results found. ED BEDSIDE ULTRASOUND: Performed by ED Physician - none LABS: Labs Reviewed - No data to display All other labs were within normal range or not returned as of this dictation. DEVEN (more content not included)... Normal [facility] HIV 1 AND 2 Antibody Screeno n 09-07-2017 HIV 1 AND 2 Antibody Screen Negative Normal Negative [facility] Comment on above: Order Comment: For h igh risk patients with STD only Result Comment: Nega tive result does not rule out HIV infection. Ifacute HIV infection is suspected in a high-riskindividual, submit plasma specimen for HIV-1 RNAquantification test (HIVDQ) and/or HIV-2 DNA/RNAtest (FHV2Q).Test Performed by:[facility] [place] [address] Performed By: #### H IV12 ####[address] [phone] Rapid Plasma Reaginon 2017 Rapid Plasma Reagin Nonreactive Normal [facility] Comment on above: Order Comment: For h igh risk patients with STD only Result Comment: REFE RENCE RANGE:Nonreactive A reactive RPR should be verified by an FTA to confirm active infection. Performed By: #### R [facility] ####[address] [phone] C. trachomatis Amplified Pro beon 09-04-2017 C. trachomatis Amplified Probe C. trachomatis Amplified Probe: NEGATIVE. No Chlamydia trachomatis DNA detected. Source: URINE Collected: 09/04/17 10:54 Site: Blood Received : 09/04/17 11:23C. trachomatis Amplified Probe FINAL 09/06/17 12:59 NEGATIVE. No Chlamydia trachomatis DNA detected. - Method: DNA Probe Detection by Strand Displacement Amplification Assay. - NOTE: This Ampified DNA Assay should not be used for the evaluation of suspected sexual abuse or for other medico-legal indications. - Screening urine specimens for Chlamydia trachomatis and Neisseria gonorrhoeae using nucleic acid amplification is an accurate and sensitive method compared to standard techniques of detection of these pathogens. Because the pathogen is diluted in urine, it is somewhat less sensitive than a direct swab specimen evaluated by nucleic acid amplification techniques. Normal [facility] Comment on above: Performed By: #### C TAMP ####[address] [phone] ED Provider Progress Noteon 09-04-2017 [employer] Authentication Interface Message Text Elo RyanDOB: 1995Chief ComplaintPatient presents with Female ProblemNo Known AllergiesDOS: 09/04/2017Elo Bowden is a 22 y.o. Girl presenting for STI screening after findingout that a recent sexual partner was treated for an STI. She reports that shehad unprotected intercourse 4-5 days ago. He told her yesterday that he wastreated for an STI, he had had discharge and itching. He was not sure what hehad, as the cultures were still out but that they thought it was eitherchlamydia or gonorrhea.She denies any symptoms (no itching/ burning/ discharge/ odor/ dysuria/ fever/chills/ pelvic pain)She completed her HPV vaccinations last yearReview of SystemsConstitutional: Negative for activity change, appetite change, chills and fever.HENT: Negative for congestion, rhinorrhea and sore throat.Respiratory: Negative for cough, shortness of breath and wheezing.Cardiovascular : Negative for chest pain.Gastrointestinal: Negative for constipation, diarrhea, nausea and vomiting.Genitourinary: Negative for dysuria, frequency, genital sores, hematuria, pelvicpain, vaginal bleeding, vaginal discharge and vaginal pain.Musculoskeletal: Negative for arthralgias and joint swelling.Neurological: Negative for headaches.History reviewed. No pertinent past medical history.History reviewed. No pertinent surgical history.Pediatric HistoryPatient Guardian Status Father: Davon Bowden Topics Concern Not on fileSocial History Narrative No narrative on fileED Triage VitalsDate and Time Temp Temp src Pulse Resp BP SpO2 Weight 09/04/17 1031 36.9 C (98.4 F) Temporal 84 20 123/71 -- 49.5 kg AASPhysical ExamConstitutional: She appears well-developed.Cardiova scular: Normal rate and regular rhythm.Pulmonary/Chest: Effort normal and breath sounds normal. No respiratorydistress.Abd ominal: Soft. Bowel sounds are normal. She exhibits no distension. There isno tenderness. There is no guarding. No hernia.Neurological: She exhibits normal muscle tone. Coordination normal.Skin: Skin is warm. No rash noted. No erythema.ProceduresMDMN umber of Diagnoses or Management OptionsRoutine screening for STI (sexually transmitted infection):Diagnosis management comments: Elo Bowden presents for an STI screeningafter having unprotected sex with a symptomatic man. She was tested forchlamydia, gonorrhea, trich, HIV, syphilis. She was treated today with IMrocephen and PO azithromycin. As it has only been 4-5 days since the sexualencounter a bHCG would not be indicated - however she was advised to testherself for in about 2 weeksWe discussed condom use, control ([facility]).ED Course:Diagnosis' considered:Labs/Radiolo gy:Consults: No orders of the defined types were placed in this encounter.Medical Record/Transferring Institution Record:Treatment/Reasse ssment:Diagnosis to highest level of medical certainty/plan:Final diagnoses:[Z11.3] Routine screening for STI (sexually transmitted infection)I personally performed garza portions of the history and physical examination ofthis patient and discussed the management plan with the resident. I reviewedthe resident's note and agree with the documented findings and plan of care.Celia Yepez, DO12:52 PM09/04/2017 Normal [facility] GC Amplified Probeon 018 GC Amplified Probe GC Amplified Probe: NEGATIVE. No Neisseria gonorrhoeae DNA detected. Source: URINE Collected: 09/04/17 10:54 Site: Blood Received : 09/04/17 11:22GC Amplified Probe FINAL 09/06/17 12:57 NEGATIVE. No Neisseria gonorrhoeae DNA detected. - Method: DNA Probe Detection by Strand Displacement Amplification Assay. - NOTE: This Amplified DNA Assay should not be used for the evaluation of suspected sexual abuse or for other medico-legal indications. - Screening urine specimens for Chlamydia trachomatis and Neisseria gonorrhoeae using nucleic acid amplification is an accurate and sensitive method compared to standard techniques of detection of these pathogens. Because the pathogen is diluted in urine, it is somewhat less sensitive than a direct swab specimen evaluated by nucleic acid amplification techniques. Normal [facility] Comment on above: Performed By: #### G [place] ####[address] [phone] Vital Signs Date Time Vital Sign Value Performing Clinician Facility 08-10-2024 08:18-0400 Body height 170.2 cm Sybil Sheets DO Work Phone: [facility] 08-10-2024 08:18-0400 Body mass index (BMI) [Ratio] 20.83 kg/m2 Sybil Sheets DO Work Phone: [facility] 08-10-2024 08:18-0400 Body temperature 98.01 [degF] Sybil Sheets DO Work Phone: [facility] 08-10-2024 08:18-0400 Body weight 60.33 kg Sybil Sheets DO Work Phone: [facility] 08-10-2024 08:18-0400 Diastolic blood pressure 60 mm[Hg] Sybil Sheets DO Work Phone: [facility] 08-10-2024 08:18-0400 Heart rate 76 /min Sybil Sheets DO Work Phone: [facility] 08-10-2024 08:18-0400 Respiratory rate 16 /min Sybil Sheets DO Work Phone: [facility] 08-10-2024 08:18-0400 SaO2% (BldA) [Mass fraction] 98 % Sybil Sheets DO Work Phone: [facility] 08-10-2024 08:18-0400 Systolic blood pressure 110 mm[Hg] Sybil Sheets DO Work Phone: [facility] 03-30-2023 07:49-0500 Body height 170.18 cm [facility] 03-30-2023 07:49-0500 Body mass index (BMI) [Ratio] 21.6 kg/m2 [facility] 03-30-2023 07:49-0500 Body temperature 98.1 [degF] [facility] 03-30-2023 07:49-0500 Body weight 62.7 kg [facility] 03-30-2023 07:49-0500 Diastolic blood pressure 77 mm[Hg] [facility] 03-30-2023 07:49-0500 Heart rate 78 /min [facility] 03-30-2023 07:49-0500 Respiratory rate 14 /min [facility] 03-30-2023 07:49-0500 SaO2% (BldA) [Mass fraction] 98 % [facility] 03-30-2023 07:49-0500 Systolic blood pressure 101 mm[Hg] [facility] 02-11-2023 11:11-0400 Body mass index (BMI) [Ratio] 20.7 kg/m2 [facility] 02-11-2023 11:11-0400 Body temperature 97.1 [degF] [facility] 02-11-2023 11:11-0400 Body weight 58.2 kg [facility] 02-11-2023 11:11-0400 Diastolic blood pressure 80 mm[Hg] [facility] 02-11-2023 11:11-0400 Heart rate 111 /min [facility] 02-11-2023 11:11-0400 Respiratory rate 18 /min [facility] 02-11-2023 11:11-0400 SaO2% (BldA) [Mass fraction] 98 % [facility] 02-11-2023 11:11-0400 Systolic blood pressure 122 mm[Hg] [facility] 11-01-2020 09:33-0400 Body temperature 98.29 [degF] [facility] Work Phone: 11-01-2020 09:33-0400 Diastolic blood pressure 72 mm[Hg] [employer] Work Phone: 11-01-2020 09:33-0400 Heart rate 82 /min [facility] Work Phone: 11-01-2020 09:33-0400 Respiratory rate 18 /min [facility] Work Phone: 11-01-2020 09:33-0400 SaO2% (BldA) [Mass fraction] 97 % [facility] Work Phone: 11-01-2020 09:33-0400 Systolic blood pressure 111 mm[Hg] [facility] Work Phone: 08-25-2020 20:00-0400 Body height 167.6 cm [facility] Work Phone: 08-25-2020 20:00-0400 Body mass index (BMI) [Ratio] 20.98 kg/m2 [facility] Work Phone: 08-25-2020 20:00-0400 Body temperature 98.1 [degF] [facility] Work Phone: 08-25-2020 20:00-0400 Body weight 58.97 kg [facility] Work Phone: 08-25-2020 20:00-0400 Diastolic blood pressure 65 mm[Hg] [facility] Work Phone: 08-25-2020 20:00-0400 Heart rate 87 /min [facility] Work Phone: 08-25-2020 20:00-0400 Respiratory rate 16 /min [facility] Work Phone: 08-25-2020 20:00-0400 SaO2% (BldA) [Mass fraction] 100 % [facility] Work Phone: 08-25-2020 20:00-0400 Systolic blood pressure 122 mm[Hg] [facility] Work Phone: 06-28-2020 15:19-0500 BMI (Body Mass Index) 25.75 kg/m2 [facility] Work Phone: 06-28-2020 15:19-0500 Body Temperature 98.1 [degF] [facility] Work Phone: 06-28-2020 15:19-0500 Body weight 68.04 kg [facility] Work Phone: 06-28-2020 15:19-0500 BP Diastolic 80 mm[Hg] [facility] Work Phone: 06-28-2020 15:19-0500 BP Systolic 113 mm[Hg] [facility] Work Phone: 06-28-2020 15:19-0500 Height 162.6 cm [facility] Work Phone: 06-28-2020 15:19-0500 Pulse (Heart Rate) 98 /min [facility] Work Phone: 06-28-2020 15:19-0500 Pulse Oximetry 98 % [facility] Work Phone: 06-28-2020 15:19-0500 Respiratory Rate 16 /min [facility] Work Phone: 06-21-2020 00:22-0500 Body Temperature 99.1 [degF] Erika Alcantar [facility] Work Phone: 06-21-2020 00:22-0500 BP Diastolic 70 mm[Hg] Erika Alcantar [facility] Work Phone: 06-21-2020 00:22-0500 BP Systolic 122 mm[Hg] Erika Alcantar [facility] Work Phone: 06-21-2020 00:22-0500 Pulse (Heart Rate) 59 /min Erika LEWIS Work Phone: 06-21-2020 00:22-0500 Pulse Oximetry 98 % Erika LEWIS Work Phone: 06-21-2020 00:22-0500 Respiratory Rate 18 /min Erika LEWIS Work Phone: Encounters Encounter Date Encounter Type Care Provider Facility Start: 11-07-2024 End: 11-14-2024 ambulatory Sybil Orta DO Work Phone: [facility] Start: 11-07-2024 End: 11-14-2024 E-mail encounter from caregiver Sybil Orta DO Work Phone: [facility] Start: 08-11-2024 End: 08-16-2024 Follow-up encounter Sybil Orta DO Work Phone: [facility] Comment on above: Results Start: 08-10-2024 End: 08-10-2024 ambulatory CARLIN BURR Facility:[facility] Start: 08-10-2024 End: 08-10-2024 Patient encounter procedure Sybil Orta DO Work Phone: [facility] Comment on above: Well female exam wit h routine gynecological exam (Primary Dx); Mass of upper outer quadrant of right breast; Nexplanon in place; TOBI (generalized anxiety disorder); Dysthymic disorder; Eczema, unspecified type; Screening for cervical cancer; Screening examination for STI Start: 08-10-2024 End: 08-10-2024 Patient encounter status Sybil Orta DO Work Phone: [facility] Start: 08-08-2024 End: 08-08-2024 Refill Diane Dumont APRN.CNP Work Phone: [facility] Comment on above: Refill Request Start: 08-08-2024 End: 08-08-2024 Telephone encounter Carlin C Trill DATA REDUCTION TECHNICIAN.MAGNETIC RESONANCE IMAGING COORDINATOR Work Phone: [facility] Comment on above: Appointment Start: 07-31-2024 End: 08-02-2024 Refill Diane Dumont DATA REDUCTION TECHNICIAN.MAGNETIC RESONANCE IMAGING COORDINATOR Work Phone: [facility] Comment on above: Med Change Request Start: 07-05-2024 End: 07-05-2024 Refill Carlin C Trill DATA REDUCTION TECHNICIAN.MAGNETIC RESONANCE IMAGING COORDINATOR Work Phone: [facility] Comment on above: Refill Request Start: 04-02-2024 End: 04-03-2024 Refill Carlin C Trill DATA REDUCTION TECHNICIAN.[facility] Work Phone: [facility] Comment on above: Med Change Request Start: 03-07-2024 End: 03-07-2024 Refill Neida Luo DATA REDUCTION TECHNICIAN.[facility] Work Phone: [facility] Comment on above: Refill Request Start: 12-08-2023 Refill Carlin C Tril l DATA REDUCTION TECHNICIAN.MAGNETIC RESONANCE IMAGING COORDINATOR Work Phone: [facility] Comment on above: Refill Request Start: 09-13-2023 Refill Carlin C Tril l DATA REDUCTION TECHNICIAN.[facility] Work Phone: [facility] Comment on above: Refill Request Start: 09-09-2023 Refill Carlin C Tril l DATA REDUCTION TECHNICIAN.[facility] Work Phone: [facility] Comment on above: Refill Request Start: 04-21-2023 Telephone encounter aCrlin Rosas Trill DATA REDUCTION TECHNICIAN.MAGNETIC RESONANCE IMAGING COORDINATOR Work Phone: [facility] Comment on above: Missed Appointment ( 1st no show in 365 days (1st letter sent)) Start: 03-30-2023 End: 03-30-2023 Emergency department patient visit No Primary Care Physician Facility:[facility] Start: 03-30-2023 End: 03-30-2023 Emergency department patient visit [facility] Work Phone: Start: 03-15-2023 Telephone encounter Barbara Velasquez MA [facility] Comment on above: Results Start: 02-25-2023 ambulatory Debbie Brody RN NURSE O N CALL Comment on above: Opened In Error Start: 02-11-2023 End: 02-11-2023 Emergency department patient visit No Primary Care Physician Facility:[facility] Start: 02-11-2023 End: 02-11-2023 Emergency department patient visit [facility] Work Phone: Start: 11-20-2020 End: 11-20-2020 Subsequent hospital visit by physician Sybil Wall DATA REDUCTION TECHNICIAN [employer] Work Phone: [facility] Comment on above: Arrived Start: 11-06-2020 End: 11-06-2020 Subsequent hospital visit by physician Sybil Wall DATA REDUCTION TECHNICIAN [employer] Work Phone: [facility] Comment on above: Arrived Start: 11-01-2020 End: 11-01-2020 Emergency department patient visit [facility] Emergency Dept Comment on above: Nasal congestion (Pr imary Dx); Viral URI Start: 09-20-2020 End: 09-20-2020 Subsequent hospital visit by physician Sybil Wall DATA REDUCTION TECHNICIAN - [email or web address] Work Phone: [facility] Comment on above: Arrived Start: 08-25-2020 End: 08-25-2020 Emergency department patient visit [facility] Emergency Dept Comment on above: Acute cystitis with hematuria (Primary Dx) Start: 08-23-2020 End: 08-23-2020 Subsequent hospital visit by physician Sybil Wall DATA REDUCTION TECHNICIAN - [email or web address] Work Phone: [facility] Comment on above: Arrived Start: 06-28-2020 End: 06-28-2020 Emergency department patient visit [facility] Emergency Dept Comment on above: Encounter for remova l of sutures (Primary Dx) Start: 2020 End: 06-21-2020 Emergency department patient visit Erika Alcantar Work Phone: [facility] Emergency Dept Comment on above: Laceration of left f orearm, initial encounter (Primary Dx) Start: 09-04-2017 End: 09-04-2017 Emergency department patient visit [facility] Start: 02-16-2017 End: 02-16-2017 Ambulatory Facility:[facility] Procedures Date Procedure Procedure Detail Performing Clinician Start: 11-20-2020 RADIOLOGY REPORT 3m Sca nning Start: 11-20-2020 Us preg uterus real time f/u trnsabdl per fetus Sybil De Los Santos Mae DATA REDUCTION TECHNICIAN - MAGNETIC RESONANCE IMAGING COORDINATOR Work Phone: Start: 11-06-2020 RADIOLOGY REPORT 3m Sca nning Start: 11-06-2020 Us preg uterus after 1st trimest 05/10 gestation Sybil Wall DATA REDUCTION TECHNICIAN - MAGNETIC RESONANCE IMAGING COORDINATOR Work Phone: Start: 11-01-2020 Urnls dip stick/tabl et rgnt auto w/o microscopy Abhijit SAUNDERS Work Phone: Start: 09-20-2020 RADIOLOGY REPORT 3m Sca nning Start: 09-20-2020 Us nuchal translucency 1st gestation Sybil Wall DATA REDUCTION TECHNICIAN - MAGNETIC RESONANCE IMAGING COORDINATOR Work Phone: Start: 08-25-2020 Urnls dip stick/tabl et rgnt auto w/o microscopy Carlin Flowers PA-C Work Phone: Start: 08-23-2020 RADIOLOGY REPORT 3m Sca nning Start: 08-23-2020 Us uterus 1 4 wk transabdl 05/10 gestat Sybil Magali Mae DATA REDUCTION TECHNICIAN - MAGNETIC RESONANCE IMAGING COORDINATOR Work Phone: Start: 2020 LACERATION REPAIR Noe Willingham Work Phone: Plan of Treatment Date Care Activity Detail Author Start: 01-14-2031 Urine microalbumin profile DTaP,Tdap,Td Vaccine (4 - Td or Tdap) [facility] Start: 06-21-2030 DTaP/Tdap/Td vaccine (3 - Td or Tdap) DTaP/Tdap/Td vaccine (3 - Td or Tdap) [facility] Work Phone: Start: 06-21-2030 DTaP/Tdap/Td vaccine (3 - Td) DTaP/Tdap/Td vaccine (3 - Td) [facility] Work Phone: Start: 08-10-2025 Covid-19 Vaccine ( season) Covid-19 Vaccine () [facility] Comment on above: Postponed from 01/08 (Declined at this time) Start: 08-10-2025 Pneumococcal vaccination Pneumococcal Vaccine (1 of 2 - PCV) [facility] Comment on above: Postponed from 06/20 (Declined at this time) Start: 08-10-2025 Screening for malign ant neoplasm of cervix Cervical Cancer Screening [facility] Start: 01-08-2025 Influenza vaccination Influenza Vacc ine (#1) [facility] Start: 11-06-2024 Influenza vaccination Influenza Vacc ine (#1) [facility] Comment on above: Postponed from 01/08 (Declined at this time) Start: 03-10-2024 HIV Screening HIV Screening [facility] Comment on above: Postponed from 06/20 (Declined at this time) Start: 03-10-2024 HIV screening HIV Screening [facility] Comment on above: Postponed from 06/20 (Declined at this time) Start: 01-09-2024 Covid-19 Vaccine ( season) Covid-19 Vaccine () [facility] Start: 01-09-2024 Influenza vaccination [facility] Start: 09-21-2023 Screening for malign ant neoplasm of cervix Cervical cancer screen [facility] Work Phone: Start: 05-10-2023 Behavioral Health Screening Behavioral Health Screening [facility] Start: 03-30-2023 [facility] Start: 02-11-2023 Simple repair scalp/neck/ax/genit/bri nk 2.5cm/< RPR S/N/AX/GEN/TRNK 2.5CM/< [facility] Start: 02-11-2023 [facility] Start: 01-08-2023 Covid-19 Vaccine ( season) Covid-19 Vaccine ( season) [facility] Start: 01-08-2023 Influenza vaccination Influenza Vacc ine (#1) [facility] Start: 05-10-2022 Depression Assessment Depression Ass essment [facility] Start: 08-28-2021 Screening for Chlamy mimi trachomatis Chlamydia screen [facility] Work Phone: Start: 01-08-2021 Influenza vaccination [facility] Work Phone: Start: 11-25-2020 End: 11-25-2020 Patient encounter procedure [facility] Start: 11-20-2020 End: 11-20-2020 Patient encounter procedure 11/20/2020 Appointment Maternal/ Med [facility] Start: 11-12-2020 End: 11-12-2020 Patient encounter procedure 11/12/2020 Initial consult Obstetrics and Gynecology Christen Jackson, ROSEMARY [address] [address] [facility] Start: 11-06-2020 End: 11-06-2020 Patient encounter procedure 11/06/2020 Appointment Maternal/ Med [facility] Start: 11-01-2020 End: 11-01-2020 Patient encounter procedure 11/01/2020 Appointment Maternal/ [facility] Start: 10-28-2020 End: 10-28-2020 Patient encounter procedure [facility] Start: 09-20-2020 End: 09-20-2020 Patient encounter procedure 09/20/2020 Appointment Maternal/ [facility] Start: 01-09-2020 Influenza vaccination Flu vaccine (# 1) [facility] Work Phone: Start: 2018 Pap Testing Pap Testing [facility] Start: 2018 Screening for malign ant neoplasm of cervix [facility] Start: 2016 Pneumococcal vaccination Pneumococcal Vaccine (1 of 2 - PCV) [facility] Start: 2016 Urine microalbumin profile DTaP,Tdap,Td Vaccine (1 - Tdap) [facility] Start: 2015 Anxiety Screening Anxiety Screening [facility] Start: 2015 Depression Screening Depression Scre ening [facility] Start: 2015 Hepatitis C Screening Hepatitis C Sc reening [facility] Start: 2015 HIV Screening HIV Screening [facility] Start: 2015 HIV screening HIV Screening [facility] Start: 2013 COVID-19 Vaccine (1) COVID-19 Vaccin e (1) [facility] Work Phone: Start: 2013 Screening for Chlamy mimi trachomatis Chlamydia screen [facility] Work Phone: Start: 2012 HIV screening HIV screen [facility] Work Phone: Start: 2012 HPV Vaccine (1 - 3-d ose series) HPV Vaccine (1 - 3-dose series) [facility] Start: 2011 Peds To Adult Transition Annual Assessment Peds To Adult Transition Annual Assessment [facility] Start: 01-29-2011 Varicella vaccine (2 of 2 - 13+ 2-dose series) Varicella vaccine (2 of 2 - 13+ 2-dose series) [facility] Work Phone: Start: 2009 COVID-19 Vaccine (1) COVID-19 Vaccin e (1) [facility] Work Phone: Start: 2009 Peds To Adult Transition Initial Discussion Peds To Adult Transition Initial Discussion [facility] Start: 2008 HPV vaccine (1 - 2-d ose series) HPV vaccine (1 - 2-dose series) [facility] Work Phone: Start: 2006 HPV Vaccine (1 - 2-d ose series) HPV Vaccine (1 - 2-dose series) [facility] Start: 2003 Pneumococcal 0-64 ye ars Vaccine (1 of 1 - PPSV23) Pneumococcal 0-64 years Vaccine (1 of 1 - PPSV23) [facility] Work Phone: Start: 2003 Pneumococcal vaccination [facility] Start: 1997 Covid-19 Vaccine (#1) Covid-19 Vacci ne (#1) [facility] Start: 1997 Hepatitis B vaccine (3 of 3 - 3-dose primary series) Hepatitis B vaccine (3 of 3 - 3-dose primary series) [facility] Work Phone: Start: 1997 Hepatitis B Vaccine (3 of 3 - 3-dose series) Hepatitis B Vaccine (3 of 3 - 3-dose series) [facility] Start: 1997 Hepatitis B Vaccine (1 of 3 - 3-dose series) Hepatitis B Vaccine (1 of 3 - 3-dose series) [facility] Start: 1997 Hepatitis C screening Hepatitis C sc zeke [facility] Work Phone: End: 08-25-2020 Add On Lab Test Add On Lab Test Lab Routine One Time for 1 Occurrences starting 08/25/2020 until 08/25/2020 [facility] Work Phone: Comment on above: One Time for 1 Occur rences starting 08/25/2020 until 08/25/2020 Chlamydia trachomatis+Neisseria gonorrhoeae DNA [Presence] in Unspecified specimen by RUPERTO with probe detection GONORRHEA/CHLAMYDIA NAAT Lab Routine Screening examination for STI 08/10/2024 8:59 AM EDT [facility] End: 11-01-2020 COVID-19 COVID-19 Lab Routine One Time for 1 Occurrences starting 11/01/2020 until 11/01/2020 [facility] Work Phone: Comment on above: One Time for 1 Occur rences starting 11/01/2020 until 11/01/2020 COVID-19 COVID-19 Lab STA T 11/01/2020 9:55 AM EDT [facility] Work Phone: End: 09-09-2025 DBT Breast - bilateral diagnostic for implant [facility] BILATERAL Radiology Routine Mass of upper outer quadrant of right breast 1 Occurrences starting 08/10/2024 until 09/09/[address] [facility] Comment on above: 1 Occurrences starti ng 08/10/2024 until 09/09/2025 Lac Repair Lac Repair Proce dures Routine 2020 11:56 PM EST [facility] Work Phone: PAP TEST PAP TEST Lab Rou kandis Screening for cervical cancer 08/10/2024 8:59 AM EDT [facility] Patient Education ED Laceration Extremity [facility] Work Phone: Patient referral [facility] Work Phone: End: 09-09-2025 US Breast - right limited US BREAST LTD RIGHT Radiology Routine Mass of upper outer quadrant of right breast 1 Occurrences starting 08/10/2024 until 09/09/2025 [facility] Work Phone: Comment on above: 1 Occurrences starti ng 08/10/2024 until 09/09/2025 [facility] Immunizations Immunization Date Immunization Notes Care Provider Skye jasso 05-13-2021 COVID-19 original vaccine, age 12+ yr, monovalent (PFIZER-BIONTECH - PURPLE TOP) Sybil Sheets DO Work Phone: [facility] 04-22-2021 COVID-19 original vaccine, age 12+ yr, monovalent (PFIZER-BIONTECH - PURPLE TOP) Sybil Sheets DO Work Phone: [facility] 02-25-2021 influenza, injectabl e, quadrivalent, preservative free Barbara Raheem [facility] Work Phone: 02-25-2021 influenza virus vaccine, unspecified formulation Barbara Velasquez MA [facility] 01-14-2021 tetanus toxoid, redu earnest diphtheria toxoid, and acellular pertussis vaccine, adsorbed Barbara Velasquez [facility] Work Phone: 06-21-2020 tetanus toxoid, redu earnest diphtheria toxoid, and acellular pertussis vaccine, adsorbed Erika Alcantar [facility] Work Phone: 06-21-2020 diphtheria, tetanus toxoids and acellular pertussis vaccine, unspecified formulation Erika Alcantar [facility] Work Phone: 01-01-2011 diphtheria, tetanus toxoids and pertussis vaccine Barbara Velasquez MA [facility] Work Phone: 01-01-2011 varicella virus vaccine Barbara Velasquez MA [facility] Work Phone: 1997 hepatitis B vaccine, pediatric or pediatric/adolescent dosage Barbara Velasquez MA [facility] Work Phone: 1997 hepatitis B vaccine, pediatric or pediatric/adolescent dosage Barbara Velasquez MA [facility] Work Phone: Payers Date Payer Category Payer Self-pay 2023 Medicaid [id number] 2020 Unknown [id number] Unknown [id number] Unknown [id number] Social History Date Type Detail Facility Start: 01-29-2017 End: 06-21-2020 Tobacco smoking status LAIS Current every day smoker [facility] Start: 01-29-2017 End: 06-21-2020 Tobacco use and exposure Never used [employer] Phone: Start: 06-21-2020 End: 08-10-2024 Alcohol intake Current drinker of alcohol (finding) [employer] Phone: Start: 11-26-2017 Alcohol Comment daily drinker [employer] Phone: Start: 1997 Sex Assigned At Not on file [facility] [employer] Work Phone: Exposure to SARS-CoV -2 (event) Not sure [employer] Phone: Start: 1995 Sex Assigned At Female [employer] Work Phone: Start: 08-25-2020 End: 10-28-2020 Alcohol intake Ex-drinker (finding) [employer] Phone: Start: 08-25-2020 Tobacco Comment quit since bec oming . [employer] Phone: Start: 09-20-2020 End: 10-28-2020 Tobacco smoking status NHIS Former smoker [employer] Phone: Start: 07-16-2020 [employer] Phone: Start: 01-29-2017 Alcohol intake Current non-dr crane hooker of alcohol (finding) [facility] Start: 11-09-2017 End: 04-21-2023 History of Social function [facility] Start: 11-09-2017 End: 04-21-2023 Tobacco use panel [facility] Adult Depression Screening Assessment [address] [facility] Start: 03-10-2023 Alcohol Comment social unless medication [facility] Start: 03-30-2023 Tobacco smoking stat us NHIS Unknown if ever smoked [facility] Goals Date Patient Goal Desired Activity /State Comment on above: Formatting of this n ote might be different from the original. I will work towards the following Behavioral Health goals: I will continue to follow up with my psychologist /counselor and/or psychiatrist. and work on increasing coping skills and cognitive messages so that Elo can find more yoli in her life. Barriers: stress and chronic depression Plan for overcoming my barriers: build coping skills, replace negative thought patterns Confidence: 01/17 Anticipated Goal Completion Date: 07/29 Clinical Notes 04-11-2021 to 11-14-2024 Telephone Encounter - Joycelyn Martinez MA - 11/14/2024 11:13 AM EDTTelephone Encounter - Joycelyn Martinez MA - 11/14/2024 11:13 AM EDTTelephone Encounter - Joycelyn Martinez MA - 11/07/2024 1:45 PM EDT Note Date & Type Note Facility 11-14-2024 Telephone encounter Note Patient has no one on her HIPAA and the number on file is no longer her number. A letter has been sent Joycelyn Martinez MA [facility] 11-14-2024 Miscellaneous Notes Patient has no one on her HIPAA and the number on file is no longer her number. A letter has been sent Joycelyn Martinez MA Patient is unavailable Joycelyn Martinez MA Please notify pt that her pap test was abnormal. She has HPV, which can cause cervical cancer. The next step is a referral to an COUNTER TENDER. I will refer her to Dr. Adriana Peguero in [place] Orta DO documented in this encounter [facility] 11-07-2024 Telephone encounter Note Patient is unavailable Joycelyn Martinez MA [facility] 11-07-2024 Telephone encounter Note Please notify pt that her pap test was abnormal. She has HPV, which can cause cervical cancer. The next step is a referral to an COUNTER TENDER. I will refer her to Dr. Adriana Peguero in [place] Sybil Orta DO [facility] 08-16-2024 Telephone encounter Note Tried to call patient and a man answered who said he did not speak chadian. Letter and results mailed to patient. Cynthia Macedo MA [facility] 08-16-2024 Telephone encounter Note ----- Message from Sybil Orta DO sent at 08/11/2024 7:50 PM EDT ----- Please notify pt her STD test was negative (normal) Sybil Orta DO [facility] 08-16-2024 Miscellaneous Notes Tried to call patient and a man answered who said he did not speak chadian. Letter and results mailed to patient. Cynthia Macedo MA ----- Message from Sybil Orta DO sent at 08/11/2024 7:50 PM EDT ----- Please notify pt her STD test was negative (normal) Sybil Orta DO Left a message for patient to call back Joycelyn Martinez MA ----- Message from Sybil Orta DO sent at 08/11/2024 7:50 PM EDT ----- Please notify pt her STD test was negative (normal) Sybil Orta DO documented in this encounter [facility] 08-14-2024 Telephone encounter Note Left a message for patient to call back Joycelyn Martinez MA [facility] 08-14-2024 Telephone encounter Note ----- Message from Sybil Orta DO sent at 08/11/2024 7:50 PM EDT ----- Please notify pt her STD test was negative (normal) Sybil Orta DO [facility] 08-10-2024 Note HNO ID: [id number] Author: SYBIL ORTA DO Service: ? Author Type: Physician Type: Progress Notes Filed: 08/10/2024 12:40 Note Text: SUBJECTIVE: 29 year old female for annual routine pap and checkup. I have fully reviewed the past medical, surgical, social and family history and updated the Histories section of [facility]. She has a history of anxiety and dysthymia She has been taking zoloft 100 mg dailly for many years, just ran out a couple of days ago. She wishes to continue this medication , as it controls her mood. She has a history of eczema Uses kenalog cream as needed Patient's last menstrual period was 07/28/2024 (approximate). 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 (Patient not taking: Reported on 08/10/2024) 45 g 3 hydrOXYzine HCl (ATARAX) 25 mg tablet Take 1 tablet by mouth three times a day as needed for anxiety. (Patient not taking: Reported on 08/10/2024) 30 tablet 2 No current facility-administered medications for this visit. There is no problem list on file for this patient. Social History Tobacco Use Smoking status: Every Day Smokeless tobacco: Never Vaping Use Vaping status: Former Substance Use Topics Alcohol use: Yes Comment: social unless medication Drug use: No Family History Problem Relation Age of Onset No Known Problems Father No Known Problems Sister No Known Problems Sister No Known Problems Sister No Known Problems Brother No Known Problems Brother No Known Problems Brother Stroke Paternal Grandmother Stroke Paternal Grandfather Anxiety disorder Paternal Aunt Reviewed past medical history, family history and surgeries. All medications and supplements were reviewed with the patient. REVIEW OF SYSTEMS GENERAL: No weight loss, malaise or fevers HEENT: Negative for frequent or significant headaches, No changes in hearing or vision, no nose bleeds or other nasal problems NECK: Negative for lumps, goiter, pain and significant neck swelling RESPIRATORY: Negative for cough, hemoptysis, wheezing, COPD, dyspnea or shortness of breath CARDIOVASCULAR: Negative for chest pain, leg swelling, hypertension, CHF or palpitations GI: No nausea, vomiting, or diarrhea : No history of dysuria, frequency or incontinence TAX APPRAISER: slightly irregular periods since starting nexplanon, negative for abnormal vaginal discharge MUSCULOSKELETAL: Negative for joint pain or swelling, back pain or muscle pain SKIN: Negative for lesions, rash, and itching PSYCH: positive for dysthymia, anxiety HEMATOLOGY/LYMPHOLOGY: Negative for prolonged bleeding, bruising easily or swollen nodes ENDOCRINE: Negative for cold or heat intolerance, polyuria, polydipsia and goiter NEURO: No history of headaches, syncope, paralysis, seizures or tremors BREAST: right breast tenderness on upper out portion PHYSICAL EXAMINATION: BP 110/60 Pulse 76 Temp 36.7 ?C (98 ?F) Resp 16 Ht 170.2 cm (5' 7) Wt 60.3 kg (133 lb) LMP 08/03/2024 (Approximate) SpO2 98% BMI 20.83 kg/m? General appearance: Well appearing, alert, in no acute distress, well-hydrated, well nourished. Skin: Skin color, texture, turgor normal, no suspicious rashes or lesions Head: Normocephalic, no masses, lesions, tenderness or abnormalities Eyes: Anicteric sclera. Pupils are equally round and reactive to light. Extraocular movements are intact. Ears: External ears normal, canals clear Nose/Sinuses: Nares normal, septum midline, mucosa normal, no drainage or sinus tenderness Oropharynx: Lips, mucosa, and tongue normal, teeth and gums normal, oropharynx normal Neck: Supple, no adenopathy; thyroid symmetric, normal size, no bruits Back: Normal exam Lungs: Lungs clear to auscultation. No wheezing, rhonchi, rales. Heart: RRR without murmur, gallop, or rubs. No ectopy Abdomen: Normal abdominal exam, Abdomen soft, non-tender. Bowel sounds normal. No masses, organomegaly : normal external female genitalia, no lesions, vaginal mucosa moist, thick white discharge around cervix, cervix nonfriable, no CMT, no adnexal tenderness Extremities: No deformities, edema, skin discoloration, clubbing or cyanosis. Good capillary refill. Musculoskeletal: No joint swelling, deformity, or tenderness Peripheral pulses: Normal Neuro: Gait normal. Reflexes normal and symmetric. Sensation grossly intact. Breast: appx 25 mm mass upper outer right breast, soft, freely movable, tender, no erythema, discharge, warmth or skin changes ASSESSMENT/PLAN: 1. Well female exam with routine gynecological (more content not included)... [facility] 08-10-2024 History of Presen t illness Narrative SUBJECTIVE: 29 year old female for annual routine pap and checkup. I have fully reviewed the past medical, surgical, social and family history and updated the Histories section of [facility]. She has a history of anxiety and dysthymia She has been taking zoloft 100 mg dailly for many years, just ran out a couple of days ago. She wishes to continue this medication , as it controls her mood. She has a history of eczema Uses kenalog cream as needed Patient's last menstrual period was 07/28/2024 (approximate). 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 (Patient not taking: Reported on 08/10/2024) 45 g 3 hydrOXYzine HCl (ATARAX) 25 mg tablet Take 1 tablet by mouth three times a day as needed for anxiety. (Patient not taking: Reported on 08/10/2024) 30 tablet 2 No current facility-administered medications for this visit. There is no problem list on file for this patient. Social History Tobacco Use Smoking status: Every Day Smokeless tobacco: Never Vaping Use Vaping status: Former Substance Use Topics Alcohol use: Yes Comment: social unless medication Drug use: No Family History Problem Relation Age of Onset No Known Problems Father No Known Problems Sister No Known Problems Sister No Known Problems Sister No Known Problems Brother No Known Problems Brother No Known Problems Brother Stroke Paternal Grandmother Stroke Paternal Grandfather Anxiety disorder Paternal Aunt Reviewed past medical history, family history and surgeries. All medications and supplements were reviewed with the patient. REVIEW OF SYSTEMS GENERAL: No weight loss, malaise or fevers HEENT: Negative for frequent or significant headaches, No changes in hearing or vision, no nose bleeds or other nasal problems NECK: Negative for lumps, goiter, pain and significant neck swelling RESPIRATORY: Negative for cough, hemoptysis, wheezing, COPD, dyspnea or shortness of breath CARDIOVASCULAR: Negative for chest pain, leg swelling, hypertension, CHF or palpitations GI: No nausea, vomiting, or diarrhea : No history of dysuria, frequency or incontinence TAX APPRAISER: slightly irregular periods since starting nexplanon, negative for abnormal vaginal discharge MUSCULOSKELETAL: Negative for joint pain or swelling, back pain or muscle pain SKIN: Negative for lesions, rash, and itching PSYCH: positive for dysthymia, anxiety HEMATOLOGY/LYMPHOLOGY: Negative for prolonged bleeding, bruising easily or swollen nodes ENDOCRINE: Negative for cold or heat intolerance, polyuria, polydipsia and goiter NEURO: No history of headaches, syncope, paralysis, seizures or tremors BREAST: right breast tenderness on upper out portion PHYSICAL EXAMINATION: BP 110/60 Pulse 76 Temp 36.7 C (98 F) Resp 16 Ht 170.2 cm (5' 7) Wt 60.3 kg (133 lb) LMP 08/03/2024 (Approximate) SpO2 98% BMI 20.83 kg/m General appearance: Well appearing, alert, in no acute distress, well-hydrated, well nourished. Skin: Skin color, texture, turgor normal, no suspicious rashes or lesions Head: Normocephalic, no masses, lesions, tenderness or abnormalities Eyes: Anicteric sclera. Pupils are equally round and reactive to light. Extraocular movements are intact. Ears: External ears normal, canals clear Nose/Sinuses: Nares normal, septum midline, mucosa normal, no drainage or sinus tenderness Oropharynx: Lips, mucosa, and tongue normal, teeth and gums normal, oropharynx normal Neck: Supple, no adenopathy; thyroid symmetric, normal size, no bruits Back: Normal exam Lungs: Lungs clear to auscultation. No wheezing, rhonchi, rales. Heart: RRR without murmur, gallop, or rubs. No ectopy Abdomen: Normal abdominal exam, Abdomen soft, non-tender. Bowel sounds normal. No masses, organomegaly : normal external female genitalia, no lesions, vaginal mucosa moist, thick white discharge around cervix, cervix nonfriable, no CMT, no adnexal tenderness Extremities: No deformities, edema, skin discoloration, clubbing or cyanosis. Good capillary refill. Musculoskeletal: No joint swelling, deformity, or tenderness Peripheral pulses: Normal Neuro: Gait normal. Reflexes normal and symmetric. Sensation grossly intact. Breast: appx 25 mm mass upper outer right breast, soft, freely movable, tender, no erythema, discharge, warmth or skin changes ASSESSMENT/PLAN: 1. Well female exam with routine gynecological exam - ICD9: V72.31, ICD10: Z01.419 (primary diagnosis) - Completed pelvic and breast exam - Encouraged monthly BSE - Follow up for annual exam in one year. 2. Mass of upper outer quadrant of right breast - ICD9: 611.72, ICD10: N63.11 - US BREAST LTD RIGHT - CONTRERAS DIAG W MONROE BILATERAL 3. Nexplanon in place - ICD9: V45.52, ICD10: Z97.5 Pt advised she is not protected against as her nexplanon has been in place for 3 years, but she is safe to leave it in for 5 years 4. TOBI (generalized anxiety disorder) - ICD9: 300.02, ICD10: F41.1 Pt ran out of sertraline, but wishes to continue this medication, as it stabilizes her mood - SERTRALINE 100 MG TABLET 5. Dysthymic disorder - ICD9: 300.4, ICD10: F34.1 Pt ran out of sertraline, but wishes to continue this medication, as it stabilizes her mood - SERTRALINE 100 MG TABLET 6. Eczema, unspecified type - ICD9: 692.9, ICD10: L30.9 Unse kenalog cream as needed - TRIAMCINOLONE ACETONIDE 0.1 % TOPICAL CREAM 7. Screening for cervical cancer - ICD9: V76.2, ICD10: Z12.4 - PAP TEST 8. Screening examination for STI - ICD9: V74.5, ICD10: Z11.3 - GONORRHEA/CHLAMYDIA NAAT Sybil Orta DO documented in this encounter [facility] 08-08-2024 Telephone encounter Note Called patient to make an appointment. The phone # listed is a [place]ian speaking man and said it was not [employer]s phone number. She has noone listed on her HIPAA so I did not call the other phone number in her chart. Brynn Palmer [facility] 08-08-2024 Miscellaneous Notes Called patient to make an appointment. The phone # listed is a [place]ian speaking man and said it was not Elo's phone number. She has noone listed on her HIPAA so I did not call the other phone number in her chart. Brynn Palmer Please help assist scheduling appointment for patient for refill on medication . Thank you. Barbara Velasquez MA documented in this encounter [facility] 08-08-2024 Telephone encounter Note Please help assist scheduling appointment for patient for refill on medication . Thank you. Barbara Velasquez MA [facility] 08-08-2024 Telephone encounter Note pharm requesting refills: Last office visit 03/10/2023. Last refill 07/05/2024 . Lm on vm apt. Needed denied r Requested Prescriptions Pending Prescriptions Disp Refills sertraline (ZOLOFT) 100 mg tablet [Pharmacy Med Name: SERTRALINE HCL 100 MG TABLET] 30 tablet 0 Sig: TAKE 1 TABLET BY MOUTH EVERY DAY Please review and advise. Barbara Velasquez MA [facility] 08-08-2024 Miscellaneous Notes pharm requesting refills: Last office visit 03/10/2023. Last refill 07/05/2024 . Lm on vm apt. Needed denied r Requested Prescriptions Pending Prescriptions Disp Refills sertraline (ZOLOFT) 100 mg tablet [Pharmacy Med Name: SERTRALINE HCL 100 MG TABLET] 30 tablet 0 Sig: TAKE 1 TABLET BY MOUTH EVERY DAY Please review and advise. Barbara Velasquez MA documented in this encounter [facility] 07-05-2024 Telephone encounter Note pharmacy electronically requesting refills as follows: Last seen 03/10/23 . Last refill 04/03/24. No future appointments, tried to call patient and number in chart no longer belongs to patient. Letter sent. Requested Prescriptions Pending Prescriptions Disp Refills sertraline (ZOLOFT) 100 mg tablet [Pharmacy Med Name: SERTRALINE HCL 100 MG TABLET] 30 tablet 0 Sig: TAKE 1 TABLET BY MOUTH EVERY DAY Please review and advise. Cynthia Macedo MA [facility] 07-05-2024 Miscellaneous Notes pharmacy electronically requesting refills as follows: Last seen 03/10/23 . Last refill 04/03/24. No future appointments, tried to call patient and number in chart no longer belongs to patient. Letter sent. Requested Prescriptions Pending Prescriptions Disp Refills sertraline (ZOLOFT) 100 mg tablet [Pharmacy Med Name: SERTRALINE HCL 100 MG TABLET] 30 tablet 0 Sig: TAKE 1 TABLET BY MOUTH EVERY DAY Please review and advise. Cynthia Macedo MA documented in this encounter [facility] 04-03-2024 Telephone encounter Note Registration attempted to call patient to schedule her but her number is not correct and she does not have MyChart. Carlin Burr APRN.RU [facility] 04-03-2024 Miscellaneous Notes Registration attempted to call patient to schedule her but her number is not correct and she does not have MyChart. Carlin Burr APRN.CNP Please help assist with scheduling appointment for patient. Thank you. Needs visit for further refills. Carlin Burr APRN.RU Pharmacy requesting refills as follows: Last Office Visit 03/10/23 NOV none. Last Refill 03/07/24. Requested Prescriptions Pending Prescriptions Disp Refills sertraline (ZOLOFT) 100 mg tablet [Pharmacy Med Name: SERTRALINE HCL 100 MG TABLET] 90 tablet 1 Sig: TAKE 1 TABLET BY MOUTH EVERY DAY Please review and advise. Joycelyn Martinez MA documented in this encounter [facility] 04-03-2024 Telephone encounter Note Please help assist with scheduling appointment for patient. Thank you. [facility] 04-03-2024 Telephone encounter Note Needs visit for further refills. Carlin Burr APRN.MAGNETIC RESONANCE IMAGING COORDINATOR [facility] 04-03-2024 Telephone encounter Note Pharmacy requesting refills as follows: Last Office Visit 03/10/23 NOV none. Last Refill 03/07/24. Requested Prescriptions Pending Prescriptions Disp Refills sertraline (ZOLOFT) 100 mg tablet [Pharmacy Med Name: SERTRALINE HCL 100 MG TABLET] 90 tablet 1 Sig: TAKE 1 TABLET BY MOUTH EVERY DAY Please review and advise. Joycelyn Martinez MA [facility] 03-07-2024 Telephone encounter Note pharmacy electronically requesting refills as follows: Last seen 03/10/23 . Last refill 12/09/23. Tried to call patient and number in chart went to [employer] phone. Letter mailed to patient informing her she is due for office visit. Requested Prescriptions Pending Prescriptions Disp Refills sertraline (ZOLOFT) 100 mg tablet [Pharmacy Med Name: SERTRALINE HCL 100 MG TABLET] 30 tablet 0 Sig: TAKE 1 TABLET BY MOUTH EVERY DAY Please review and advise. Cynthia Macedo MA [facility] 03-07-2024 Miscellaneous Notes pharmacy electronically requesting refills as follows: Last seen 03/10/23 . Last refill 12/09/23. Tried to call patient and number in chart went to [employer] phone. Letter mailed to patient informing her she is due for office visit. Requested Prescriptions Pending Prescriptions Disp Refills sertraline (ZOLOFT) 100 mg tablet [Pharmacy Med Name: SERTRALINE HCL 100 MG TABLET] 30 tablet 0 Sig: TAKE 1 TABLET BY MOUTH EVERY DAY Please review and advise. Cynthia Macedo MA documented in this encounter [facility] 12-08-2023 Telephone encounter Note pharm requesting refills: Last office visit 03/10/2023. Last refill 09/14/2023. Requested Prescriptions Pending Prescriptions Disp Refills sertraline (ZOLOFT) 100 mg tablet [Pharmacy Med Name: SERTRALINE HCL 100 MG TABLET] 90 tablet 0 Sig: take 1 tablet by mouth every day Please review and advise. Barbara Velasquez MA [facility] 12-08-2023 Miscellaneous Notes pharm requesting refills: Last office visit 03/10/2023. Last refill 09/14/2023. Requested Prescriptions Pending Prescriptions Disp Refills sertraline (ZOLOFT) 100 mg tablet [Pharmacy Med Name: SERTRALINE HCL 100 MG TABLET] 90 tablet 0 Sig: take 1 tablet by mouth every day Please review and advise. Barbara Velasquez MA documented in this encounter [facility] 09-14-2023 Telephone encounter Note pharmacy electronically requesting refills as follows: Last seen 03/10/23 . Last refill 09/10/23 . No future appointments Requested Prescriptions Pending Prescriptions Disp Refills sertraline (ZOLOFT) 100 mg tablet 90 tablet 0 Sig: Take 1 tablet by mouth once daily. Please review and advise. Cynthia Macedo MA [facility] 09-14-2023 Miscellaneous Notes pharmacy electronically requesting refills as follows: Last seen 03/10/23 . Last refill 09/10/23 . No future appointments Requested Prescriptions Pending Prescriptions Disp Refills sertraline (ZOLOFT) 100 mg tablet 90 tablet 0 Sig: Take 1 tablet by mouth once daily. Please review and advise. Cynthia Macedo MA Requested Prescriptions Pending Prescriptions Disp Refills sertraline (ZOLOFT) 100 mg tablet 90 tablet 0 Sig: Take 1 tablet by mouth once daily. documented in this encounter [facility] 09-13-2023 Telephone encounter Note Requested Prescriptions Pending Prescriptions Disp Refills sertraline (ZOLOFT) 100 mg tablet 90 tablet 0 Sig: Take 1 tablet by mouth once daily. [facility] 09-10-2023 Telephone encounter Note Due for appointment. Carlin Burr APRN.MAGNETIC RESONANCE IMAGING COORDINATOR [facility] 09-10-2023 Miscellaneous Notes Due for appointment. Carlin Burr APRN.CNP pharmacy electronically requesting refills as follows: Last seen 03/10/23 . Last refill 03/10/23 . Requested Prescriptions Pending Prescriptions Disp Refills sertraline (ZOLOFT) 50 mg tablet [Pharmacy Med Name: SERTRALINE HCL 50 MG TABLET] 180 tablet 1 Sig: START WITH 50 MG BY MOUTH ONCE A DAY FOR 7 DAYS, THEN INCREASE TO 100 MG BY MOUTH ONCE A DAY Please review and advise. Cynthia Macedo MA documented in this encounter [facility] 09-10-2023 Telephone encounter Note pharmacy electronically requesting refills as follows: Last seen 03/10/23 . Last refill 03/10/23 . Requested Prescriptions Pending Prescriptions Disp Refills sertraline (ZOLOFT) 50 mg tablet [Pharmacy Med Name: SERTRALINE HCL 50 MG TABLET] 180 tablet 1 Sig: START WITH 50 MG BY MOUTH ONCE A DAY FOR 7 DAYS, THEN INCREASE TO 100 MG BY MOUTH ONCE A DAY Please review and advise. Cynthia Macedo MA [facility] 04-21-2023 Miscellaneous Notes No Show Documentation Elo Bowden no showed for an appointment on 04/21/2023 with Carlin Burr APRN.CNP at 8:40 am. She was scheduled for 6 week follow up for anxiety. I called and could not leave a message for the patient regarding her missed appointment due to her not accepting incoming calls. Resources discussed/offered to patient: na No show determined to be fault of patient: Yes This is the patients first no show in the last 12 months. Patient was rescheduled for na. Letter mailed : Yes Is this the Third or Fourth No Show? No Brynn Palmer April 21, 2023 9:35 AM documented in this encounter [facility] 03-30-2023 Hospital Discharg e instructions Additional Instructions 1. Warm compresses to right cheek region 4-6 times a day 2. Take antibiotics until gone 3. See your primary care doctor for wound check in 2 days. The name of your doctor is on your insurance card issued to you by [facility]. [facility] Work Phone: 03-15-2023 Miscellaneous Notes Patient notified. Barbara Velasquez MA ----- Message from Carlin Burr APRN.MAGNETIC RESONANCE IMAGING COORDINATOR sent at 03/14/2023 10:33 PM EST ----- Please notify patient results are normal. Thank you. Carlin Burr APRN.MAGNETIC RESONANCE IMAGING COORDINATOR documented in this encounter [facility] 04-11-2021 Note Department of Obstet rics and Gynecology Delivery Discharge Summary Admission on 04/08/2021 8:45 AM Reason for admission: IOL-Risk Reducing Intrapartum Course: Elo Bowden at 40w1d admitted for risk reducing induction of labor. Her labor course included duenas bulb, cytotec, pitocin, and AROM. She made change to complete and began pushing. Baby was delivered without complication. Code pink was called for meconium. One dose of methergine was given for uterine atony. Patient and baby tolerated procedure well. Patient a midline 1st degree perineal laceration. 40w1d PC- Indications for Delivery: Was patient delivered between 37w0d - [id number]? NO Surgical Operations & Procedures: Date of delivery: 04/09 Delivery Type: spontaneous vaginal Anesthesia: Epidural anesthesia Laceration(s): 1st degree Delivery Complications: none EBL: 400 cc Pertinent Findings & Procedures: Information for the patient's : Tomás Bowden [[id number]] male Weight: 8 lb 3.4 oz (3.725 kg) Apgars: Information for the patient's : Tomás Bowden [[id number]] One Minute : 5 Five Minute : 7 Course: Uncomplicated Infant: Male infant, circumcision completed Blood Type/Rh: A POS Antibody Screen: Antibody Screen Date Value Ref Range Status 04/08/2021 NEG NA Final Rubella: Lab Results Component Value Date RUBELLAIGG 36.0 08/28/2020 Contraception: Nexplanon : yes VTE Prophylaxis: Not Indicated Meds: Medication List START taking these medications acetaminophen 500 MG tablet Commonly known as: TYLENOL Take 2 tablets by mouth 3 times daily as needed for Pain ibuprofen 600 MG tablet Commonly known as: ADVIL;MOTRIN Take 1 tablet by mouth every 6 hours CONTINUE taking these medications Banophen 25 MG capsule Generic drug: diphenhydrAMINE 1 PO vitamin 27-1 MG Tabs tablet Take 1 tablet by mouth daily sertraline 50 MG tablet Commonly known as: ZOLOFT Take 1 tablet by mouth daily Where to Get Your Medications These medications were sent to [facility]/pharmacy #[id number] - [place], [place] - [address] [facility] - [phone] - F [phone] [address] [facility] [address] Hours: 24-hours ? acetaminophen 500 MG tablet ? ibuprofen 600 MG tablet Activity: Activity as tolerated Diet: Regular diet Follow up Care: Follow up appointment in 4 weeks with [facility] Condition on discharge: Stable Discharge to: Home Discharge date: 04/11/21 Discharge Dx: Post-, Instructions to Patient:: Pelvic Rest (no intercourse, tampons, douching, etc) x 6 weeks Specific discharge instruction printed Vaginal delivery [O80] Indication for care in labor and delivery, antepartum [O75.9] Patient Active Problem List Diagnosis ? care in third trimester Comments: Home care, Follow-up care and control were reviewed. Signs and symptoms of mastitis and Post Depression were reviewed. The patient is to notify her physician if any of these occur. ALLEGRA GONZALEZ DO on 04/11/2021 at 4:41 PM [facility] Discharge summary Note Date/Time March 30, 2023 8:13am [facility] Medical Records Department [address] [place] [address] Emergency Department Summary 03/30/23 MR#: [id number] Acct: [id number] Name: ELO BOWDEN Rep #:[id number] : 1995 27 From: Ankit Esquivel MD PCP: Care Physician,No Primary Status :REG ER Location: ED HPI History of Present Illness Chief Complaint: Wound Detail of Chief Complaint: Unable to remove piercing from right maxillary region Informant: patient Onset/Context/Timing Onset: Today Context: Sudden Onset Timing: Continuous Quality: Soft tissue swelling Location: Right maxillary region Current Severity: Moderate Maximum Severity: Moderate Worsened by: Attempt to remove janet stud Associated Symptoms Associated Symptoms: Pain, soft tissue swelling without erythema, warmth or induration. There i Narrative Narrative: Is a 27-year-old female who had her right and left cheek pierced 1 month ago. She attempted to remove the janet stud without success. She had significant swelling on the right side. She denies fever, chills night sweats. She denies redness, warmth or drainage. She attempted to remove and was unsuccessful. No history medic fever, heart murmur or mitral valve prolapse. Prior similar symptoms: No Recent Illness/Hospitalization: No PFSH PFSH Medical History Anxiety Depression Home Medications cephalexin 500 mg capsule 500 mg PO Q6 #20 CAPSULES 03/30/23 [Rx Last Taken Unknown] Allergy/AdvReac Type Severity Reaction Status Date / Time No Known Allergies Allergy Verified 03/30/23 07:49 Social History (Updated 03/30/23 @ 08:[address] Ankit Esquivel MD) household members: none Smoking Status: Current every day smoker tobacco type: cigarettes alcohol intake: current ROS ROS ED Constitutional Constitutional ED: Denies chills, fever(s) or subjective Eyes Eyes: Denies blurry vision, change in vision or diplopia ENT ENT ED: Reports other Details: Facial swelling, maxillary region ; Denies ear pain, rhinorrhea or sore throat Cardiovascular Cardiovascular: Reports chest pain Respiratory/Chest Respiratory/Chest: Reports cough and dyspnea Gastrointestinal Gastrointestinal: Reports nausea and vomiting Integumentary Denies abscess, Abrasions or rash Neurologic Neurologic: Denies paresthesias Allergic/Immunologic Allergic/Immunologic ED: Denies mouth swelling, tongue swelling or urticaria EXAM Physical Exam Const Vital Signs: 03/30/23 07:49 Temperature 98.1 F Temperature Source Temporal Pulse Rate 78 Respiratory Rate 14 Blood Pressure 101/77 Blood Pressure Mean 85 Pulse Ox 98 Oxygen Delivery Method Room Air Positive well nourished and well developed General Appearance ED: well developed and NAD; Negative for cyanotic, diaphoretic or pallor HEENT Reports moist mucous membranes HEENT Narrative: Janet stud on the right is embedded into the skin and buccal surface. Unable to see the post where the clasp is. There is no erythema, warmth, induration ordrainage. There is no preauricular lymphadenopathy. Eyes PERRL and EOMs intact bilaterally General Eye ED: Negative for pale conjunctiva or scleral icterus Neck no lymphadenopathy, supple and no JVD Resp normal respiratory effort and clear to auscultation bilaterally Cardio regular rate, regular rhythm, S1 normal heart sound, S2 normal heart sound and no murmurs Neuro oriented x3 and CN's II-XII intact bilaterally Sensorium / Orientation: alert Psych mental status grossly normal Skin no rashes or lesions noted and skin turgor normal General Skin Exam: elasticity normal; Negative for jaundice or pallor MDM MDM MDM Narrative Medical decision making narrative: A janet stud is embedded. Patient was informed that treatment will be to anesthetize the area. Make a small incision on the buccal surface to expose thepost and class. Temporally be made to remove the clasp. Patient asked if a larger bore could be placed to prevent the area from closing since she would like to have the area stay open. Initially agreed. It will depend on if there is evidence of infection. This is concern for infection. Patient was placed on cephalexin. She received her first dose in the emergency department. Procedures Other Procedures Procedure(s): The area of the piercing was anesthetized by local infiltration. The end of the post on the buccal surface was seen. The post was grabbed using Suzie hemostats. The janet portion was secured with needle lewis. An attempt to unscrew the post the buccal portion of the post broke. The piercing was easily removed. There may have been slight drainage that was cloudy.. A larger post was placed to keep the area open and alleviating need for an incision. Patient was placed on cephalexin. Discharge Plan Triage Chief Complaint: Wound ED Provider: Ankit Esquivel Dx/Rx/DC Orders Clinical Impression: Old FB in soft tissue, Pierced face infection Prescriptions: New cephalexin [cephalexin] 500 mg capsule 500 mg PO Q6 Qty: 20 0RF Primary Care Provider: Care Physician,No Primary Referrals: Care Physician,No Primary [Primary Care Provider] - Doctor,Your [Non-Staff] - 2 Days for wound check Activity Restrictions/Additional Instructions: 1. Warm compresses to right cheek region 4-6 times a day 2. Take antibiotics until gone 3. See your primary care doctor for wound check in 2 days. The name of your doctor is on your insurance card issued to you by [employer]. Disposition Disposition: Home, Self Care What to do if you have Problems For any increased pain, shortness of breath, bleeding, nausea or vomiting, chestpain, or any unexpected problems, contact your Primary Care Provider. Call [facility] ([phone]) or report to the closest Emergency Room. Call 911 if necessary. 03/30/23830 <Electronically signed by Ankit Esquivel MD> Cosigner Signature (if applicable): CC: No Primary Care Physician ~ Signed [facility] Work Phone: Evaluation note* Diagnosis Acute cystitis with hematuria- Primary Acute cystitis documented in this encounter [facility] Work Phone: Evaluation note* Diagnosis Nasal congestion- Primary Other diseases of nasal cavity and sinuses Viral URI Acute upper respiratory infections of unspecified site documented in this encounter [facility] Work Phone: Evaluation noteNo assessment information available [facility] Work Phone: Evaluation note* Diagnosis Moderate episode of recurrent major depressive disorder (HCC) TOBI (generalized anxiety disorder) Generalized anxiety disorder [facility] Diagnosis Moderate episode of recurrent major depressive disorder (HCC) TOBI (generalized anxiety disorder) Generalized anxiety disorder [facility] [place] [facility] Diagnosis Moderate episode of recurrent major depressive disorder (HCC) TOBI (generalized anxiety disorder) Generalized anxiety disorder [facility] Diagnosis Moderate episode of recurrent major depressive disorder (HCC) TOBI (generalized anxiety disorder) Generalized anxiety disorder documented in this encounter [facility] note* Diagnosis Moderate episode of recurrent major depressive disorder (HCC) TOBI (generalized anxiety disorder) Generalized anxiety disorder [facility] [place] [facility] Diagnosis Well female exam with routine gynecological exam- Primary Routine gynecological examination Mass of upper outer quadrant of right breast Nexplanon in place Presence of subdermal contraceptive device TOBI (generalized anxiety disorder) Generalized anxiety disorder Dysthymic disorder Eczema, unspecified type Screening for cervical cancer Screening for malignant neoplasm of the cervix Screening examination for STI documented in this encounter [facility] note* Diagnosis Atypical squamous cells of undetermined significance on cytologic smear of cervix (ASC-US)- Primary Papanicolaou smear of cervix with atypical squamous cells of undetermined significance (ASC-US) [facility] Discharge instructions* Attachments The following attachments cannot be sent through Care Everywhere. * : UTI (Urinary Tract Infection) (Burmese) [facility] Discharge [facility]* Instructions* Abhijit Alberto PA - 11/01/2020 These follow-up your primary care physician, you will get results on your Covid test in the next few days. Please try to isolate per Covid guidelines and to get the results, I do not think you have Covid but we are just being safe. Additionally gave you prescriptions for Flonase and Claritin, you can use these as needed for symptomatic relief. * Attachments The following attachments cannot be sent through Care Everywhere. * URI (Upper Respiratory Infection): Viral (Burmese) [facility] Summary Purpose Family History No Family History Records FoundNo Family History Records FoundNo Family History Records FoundNo Family History Records FoundNo Family History Records Found Advance Directives Advance Directive Response Recorded Date/ Time Living Will No March 30 023 7:49am Power of Strap Cutter No March 30, 2023 7:49am Discharge Instructions * Attachments The following attachments cannot be sent through Care Everywhere. * Lacerations: Stitches (Burmese) documented in this encounter* Instructions* Sania Curran PA-C - 06/28/2020 You were seen in the Emergency Department today for suture removal. Thank you for trusting us with your care. Please follow up with your Primary Care provider within the next 1-2 days. If you need a primary care provider, the contact information for the internal medicine center has been provided below. Please call tomorrow to schedule an appointment. If you cannot maintain close follow-up with your primarycare provider, please return to the emergency department for any urgent issues. Please take all home medications as directed. Continue the use of jwpo-lgw-phenchi acetaminophen/Tylenol or ibuprofen/Motrin as directed and as needed for pain and fever relief. Maintain adequate fluid intake and rest. Keep laceration site clean, dry and intact with a Band-Aid applied as needed. Keep the laceration site out of the sun or with at least a 50 SPF for the next year to minimize scarring. Return to the emergency department if you notice any signs of the wound beginning to open again or any signs of yellow drainage or surrounding redness. Please return to the Emergency Department if you have any worsening of your symptoms, develop any new symptoms or would like to be re-evaluated. * Attachments The following attachments cannot be sent through Care Everywhere. * Stitches and Vern Removal: General Info (Burmese) * Wound Check (Burmese) documented in this encounter Assessments Diagnosis Laceration of left forearm, initial encounter- Primary Diagnosis Encounter for removal of sutures- Primary Chief Complaint and Reason for Visit Chief Complaint LAC infection Additional Source Comments INFORMATION SOURCE (unrecogn ized section and content) DATE CREATED AUTHOR 10/28/2017 [facility] DATE CREATED AUTHOR AUTHOR'S ORGANIZ ATION 11/02/2017 [facility] DATE CREATED AUTHOR AUTHOR'S ORGANIZ ATION 04/23/2021 [facility] DATE CREATED AUTHOR AUTHOR'S ORGANIZ ATION 03/31/2023 [facility] DATE CREATED AUTHOR AUTHOR'S ORGANIZ ATION 08/19/2024 [facility] Reason for Visit (unrecogniz ed section and content) Reason Comments Laceration LEFT forearm lacerat ion. pt fell on glass Reason Comments Suture / Staple Removal Pt here to the E R for suture removal. Pt had sutures placed approx 1 week ago on left forarm. No redness or swelling noted to suture area. Reason Comments Urinary Frequency Urinary frequency/dy suria. pt is 7 weeks . Reason Comments Nasal Congestion nasal congestion and scratchy throat Reason Comments Opened In Error Reason Comments Results Reason Comments Missed Appointment 1st no show in 365 d ays (1st letter sent) Reason Comments Refill Request Reason Onset Date Comments Refill Request 09/13/2023 Reason Comments Med Change Request Reason Comments Appointment Reason Comments Well Adult Reason Onset Date Comments Results 08/11/2024 Ordered Prescriptions (unrec ognized section and content) Prescription Sig Dispensed Refills Start Date End Da te cephALEXin (KEFLEX) 500 MG capsule Take 1 capsule by mouth 2 times daily for 7 days 14 capsule 0 08/25/2020 09/01/2020 Prescription Sig Dispensed Refills Start Date End Da te loratadine (CLARITIN) 10 MG tablet Take 1 tablet by mouth daily 30 tablet 0 11/01/2020 12/01/2020 fluticasone (FLONASE) 50 MCG/ACT nasal spray 1 spray by Each Nostril route daily 1 Bottle 0 11/01/2020 Source Comments (unrecognize d section and content) In the event this informatio n is protected by the Federal Confidentiality of Alcohol and Drug Abuse Patient Records regulations: The Federal rules restrict any use of the information to criminally investigate or prosecute any alcohol or drug abuse patient.[facility] the event this information is protected by the Federal Confidentiality of Alcohol and Drug Abuse Patient Records regulations: The Federal rules restrict any use of the information to criminally investigate or prosecute any alcohol or drug abuse patient.[facility] the event this information is protected by the Federal Confidentiality of Alcohol and Drug Abuse Patient Records regulations: The Federal rules restrict any use of the information to criminally investigate or prosecute any alcohol or drug abuse patient.[facility] the event this information is protected by the Federal Confidentiality of Alcohol and Drug Abuse Patient Records regulations: The Federal rules restrict any use of the information to criminally investigate or prosecute any alcohol or drug abuse patient.[facility] the event this information is protected by the Federal Confidentiality of Alcohol and Drug Abuse Patient Records regulations: The Federal rules restrict any use of the information to criminally investigate or prosecute any alcohol or drug abuse patient.[facility] Center[facility] the event this information is protected by the Federal Confidentiality of Alcohol and Drug Abuse Patient Records regulations: The Federal rules restrict any use of the information to criminally investigate or prosecute any alcohol or drug abuse patient.[facility] Center[facility] the event this information is protected by the Federal Confidentiality of Alcohol and Drug Abuse Patient Records regulations: The Federal rules restrict any use of the information to criminally investigate or prosecute any alcohol or drug abuse patient.[facility] the event this information is protected by the Federal Confidentiality of Alcohol and Drug Abuse Patient Records regulations: The Federal rules restrict any use of the information to criminally investigate or prosecute any alcohol or drug abuse patient.[facility] Center[facility] the event this information is protected by the Federal Confidentiality of Alcohol and Drug Abuse Patient Records regulations: The Federal rules restrict any use of the information to criminally investigate or prosecute any alcohol or drug abuse patient.[facility] Center[facility] the event this information is protected by the Federal Confidentiality of Alcohol and Drug Abuse Patient Records regulations: The Federal rules restrict any use of the information to criminally investigate or prosecute any alcohol or drug abuse patient.[facility] Center[facility] the event this information is protected by the Federal Confidentiality of Alcohol and Drug Abuse Patient Records regulations: The Federal rules restrict any use of the information to criminally investigate or prosecute any alcohol or drug abuse patient.[facility] Center[facility] the event this information is protected by the Federal Confidentiality of Alcohol and Drug Abuse Patient Records regulations: The Federal rules restrict any use of the information to criminally investigate or prosecute any alcohol or drug abuse patient.[facility] Center[facility] the event this information is protected by the Federal Confidentiality of Alcohol and Drug Abuse Patient Records regulations: The Federal rules restrict any use of the information to criminally investigate or prosecute any alcohol or drug abuse patient.[facility] CenterIn the event this information is protected by the Federal Confidentiality of Alcohol and Drug Abuse Patient Records regulations: The Federal rules restrict any use of the information to criminally investigate or prosecute any alcohol or drug abuse patient.[facility] Center[facility] the event this information is protected by the Federal Confidentiality of Alcohol and Drug Abuse Patient Records regulations: The Federal rules restrict any use of the information to criminally investigate or prosecute any alcohol or drug abuse patient.[facility] Care Teams (unrecognized sec tion and content) Validation Technician Relationship Specialty Start Date End Date Carlin Burr APRN.CNP [address] [place], [place] [id number] PCP - General Family Medicine 03/10/23 Team Status: Active Member Role Status Dates No Primary Care Physician Primary Care Provider Active Team Status: Inactive Member Role Status Dates Dr. Bijan Syed DO Attending Provider, Emergency P frantz Active No Primary Care Physician Primary Care Provider Active Team Status: Inactive Member Role Status Dates No Primary Care Physician Primary Care Provider Active Dr. Ankit Esquivel MD Emergency Provider Active Validation Technician Relationship Specialty Start Date End Date Carlin Burr APRN.RU [address] [place] [address] PCP - General Family Medicine 03/10/23 Validation Technician Relationship Specialty Start Date End Date Carlin Burr APRN.RU [address], [place] [id number] PCP - General Family Medicine 03/10/23 Validation Technician Relationship Specialty Start Date End Date Carlin Burr APRN.RU [address] [place] [address] PCP - General Family Medicine 03/10/23 Validation Technician Relationship Specialty Start Date End Date Carlin Burr, DATA REDUCTION TECHNICIAN.MAGNETIC RESONANCE IMAGING COORDINATOR [address] [place] [address] PCP - [facility] 03/10/23 Validation Technician Relationship Specialty Start Date End Date Carlin Burr, DATA REDUCTION TECHNICIAN.MAGNETIC RESONANCE IMAGING COORDINATOR [address] [place] [address] PCP - [facility] Medicine 03/10/23 Validation Technician Relationship Specialty Start Date End Date Carlin Burr DATA REDUCTION TECHNICIAN.MAGNETIC RESONANCE IMAGING COORDINATOR [address] [place] [address] PCP - [facility] 03/10/23 Validation Technician Relationship Specialty Start Date End Date Carlin Burr, DATA REDUCTION TECHNICIAN.MAGNETIC RESONANCE IMAGING COORDINATOR [address] [place] [address] PCP - [facility] 03/10/23 Validation Technician Relationship Specialty Start Date End Date Carlin Burr, DATA REDUCTION TECHNICIAN.MAGNETIC RESONANCE IMAGING COORDINATOR [address] [place] [address] PCP - General Family Medicine 03/10/23 Goals (unrecognized section and content) Goals may be documented in a n alternate section FOR RECORDS PERTAINING TO PATIENTS WHO ARE OR HAVE BEEN ENROLLED IN A CHEMICAL DEPENDENCY/SUBSTANCEABUSE PROGRAM, SOME INFORMATION MAY BE OMITTED. This clinical summary was aggregated from multiple sources. Caution should be exercised in using it in the provision of clinical care. This summary normalizes information from multiple sources, and as a consequence, information in this document may materially change the coding, format and clinical context of patient data. In addition, data may be omitted in some cases. CLINICAL DECISIONS SHOULD BE BASED ON THE PRIMARY CLINICAL RECORDS. [facility] provides no warranty or guarantee of the accuracy or completeness of information in this document.
[2024-11-20 08:34] VITALS: BP 110/64; PULSE 75; RESP 12; TEMP 36.8; O2SAT 99
== END 2024-11-20 08:35 | disposition home or self-care (01) ==
PROVIDERS: Emergency Provider Emergency Medicine; Visit Provider Emergency Medicine
DX: S93.402A Sprain of unspecified ligament of left ankle, initial encounter (principal); F17.210 Nicotine dependence, cigarettes, uncomplicated; W17.89XA Other fall from one level to another, initial encounter; Y93.49 Activity, other involving dancing and other rhythmic movements
CPT/HCPCS: 73610; 73630; 99284